=== PATIENT | female | born 1935 | race Caucasian/White ===

== ENCOUNTER 2016-11-24 16:11 | Inpatient (IN) ==
[2016-11-24] MEDS ORDERED: DILTIAZEM 50 MG/10 ML VIAL IV STA (16:39)
--- NOTE | 2016-11-24 16:44 | Emergency Department Note ---
Arrival - Arrival Chief Complaint: Arrhythmia/Palpitations Stated Complaint: bp chloe than usual. heart racing ED Nursing Triage Note: C/O HEART PALPITATIONS WITH LIGHT HEADED WITH ONSET 3-4 DAYS. PT ALSO STATES HER BLOOD PRESSURE HAS BEEN UP LATELY Mode of Arrival: Wheelchair Limitations: No Limitations Source: Patient, Family Time Seen by Provider: 11/24/16 16:39 - History of Present Illness HPI Narrative: This 81-year-old white female presents for complaints of 3-4 day history of the sensation of an irregular heartbeat sometimes speeded up. The patient denies a history of atrial fibrillation or SVT although she does have a history of bypass surgery, CO, and congestive failure. She denies any nausea, vomiting, diaphoresis, chest pain, or shortness of breath with this episode over the last few days. Her major complaint was feeling lightheaded and the sensation of irregularity of her heartbeat causing anxiety. Currently she does not appear in any acute medical distress. Onset (ago): day(s) (Patient presents 3-4 days post onset of symptoms) Consistency: constant Allergies/Adverse Reactions: Allergies Allergy/AdvReac Type Severity Reaction Status Date / Time No Known Allergies Allergy Unverified 11/24/16 16:15 Review of System - Review of System 12 point system: reviewed and no additional remarkable complaints except as stated - Review of System Constitutional: Present: as per HPI Respiratory: Present: as per HPI Cardiovascular: Present: as per HPI Gastrointestinal: Present: as per HPI Medical,Surgical,& Family Hx - Medical History Cardio: History of: Hypertension, CO Endocrine: History of: Diabetes Mellitus (NIDDM) - Surgical History Cardiac Surgeries: Sugical HX of: Cardiac Surgery (CABG) - Family History Family History: Reports;: Family Diabetes - Social History Smoking Status: Never smoker Frequency of Alcohol Use: None Type of Drug Use: None Exam Physical Examination: GENERAL: Well developed, well nourished elderly white female in no acute distress. HEENT: Normocephalic. No trauma. Moist mucous membranes. EOMI. PERRLA. ENT NML NECK: Supple. No adenopathy. CARDIAC: Irregular. No murmurs. Heart rate 120 CHEST: Clear to auscultation. No respiratory distress. O2 sat 95% ABDOMEN: Soft. Nontender. Active bowel sounds. EXTREMITIES: No trauma. Normal ROM. No pedal edema. SKIN: No diaphoresis. No rash. NEURO: Alert. Neuro intact. No focal deficits. Vital Signs: Vital Signs Temperature 98.0 F 11/24/16 16:34 Pulse Rate 72 11/24/16 16:34 Respiratory Rate 18 11/24/16 16:34 Blood Pressure 191/101 11/24/16 16:34 O2 Sat by Pulse Oximetry 95 11/24/16 16:15 Course - Reevaluation(s) Reevaluation #1: Discussed with patient the need for hospitalization given new onset atrial fibrillation - Consultations Consultation #1: Discussed with Dr. January Sin who will admit for further evaluation and treatment Results - Labs CBC & BMP: 11/24/16 16:54 11/24/16 16:54 Labs: I have noted the normal CBC and elevated free T4 as well as negative cardiacs. - Impressions EKG atrial fibrillation at [address] changes. Poor R-wave progression anteriorly. No acute injury pattern noted. - Diagnostic Findings Procedure: Chest x-ray: image reviewed by me, report reviewed by me (Status post mediastinal anatomy with borderline cardiomegaly and mild congestive failure.) Disposition Clinical Impression: New onset atrial fibrillation, Mild congestive failure, Hyperthyroidism Case discussed with: patient, patient's family Disposition: Still a Patient Condition: Stable Time of Disposition: 17:56
[2016-11-24] MEDS ORDERED: DILTIAZEM 50 MG/10 ML VIAL IV ONE (16:59)
[2016-11-24 17:03] LABS: Basophils % 0.3 % (0.0-0.8); Eosinophils % 0.4 % (0.00-10.9); Hematocrit 36.6 VOL% (35.7-47.0); Hemoglobin 12.1 GM/DL (12.0-16.0); Immature Granulocytes % 0.3 %; Immature Granulocytes Absolute 0.02 #; Lymphocytes # 1.4 10*3/uL (1.4-4.0); Lymphocytes % 19.7 % (21.3-54.2); Mean Corpuscular HGB Conc 33.1 GM/DL (32-36); Mean Corpuscular Hemoglobin 30 PG (27-34); Mean Corpuscular Volume 89.9 FL (87-102); Mean Platelet Volume 12.2 FL (9.6-12.0); Monocytes # 0.5 10*3/uL (0.11-0.8); Monocytes % 6.4 % (1.7-12.7); Neutrophils # 5.1 10*3/uL (1.4-7.4); Neutrophils % 72.9 % (38.7-73.9); Platelet Count 146 T/CUMM (130-400); Red Blood Count 4.07 MC/CUMM (3.8-5.5); Red Cell Distribution Width 13.2 % (9.3-17.3)
[2016-11-24 17:15] LABS: PT Patient Result 10.6 SECS; Partial Thromboplastin Time 25.7 SECS (0-40)
[2016-11-24 17:26] LABS: Free T4 (Free Thyroxine) 1.98 NG/DL (0.76-1.46); Troponin I Only < 0.015 NG/ML (0.00-0.045)
--- NOTE | 2016-11-24 17:27 | XRay Report ---
Portable chest Date: 11/24/2016 Clinical history: Shortness of breath Comparison: 07/11/2012 Technique: Portable AP sitting chest Findings: The heart is minimally enlarged with prior median sternotomy. Coronary artery stents are noted. Expiratory chest with prominent pulmonary vasculature. Progressive diffuse parenchymal findings especially at the lung bases. Stable mediastinum with degenerative changes and osteopenia. Impression: Status post median sternotomy with chronic scarring. Mild CHF. PROCEDURE INTERPRETED AT [facility] DEPARTMENT OF RADIOLOGY Final Report Signed by: Dr. Tamika Todd
[2016-11-24 17:38] LABS: Alanine Aminotransferase 28 U/L (13-56); Albumin 3.4 G/DL (3.4-5.0); Alkaline Phosphatase 107 U/L (45-117); Aspartate Amino Transferase 27 U/L (0-37); Bilirubin,Total < 0.39 MG/DL (0.2-1.0); Blood Urea Nitrogen 27 MG/DL (7-18); Calcium 8.5 MG/DL (8.5-10.1); Glucose 159 MG/DL (74-106); Potassium 3.7 MMOL/L (3.5-5.1); Sodium 143 MMOL/L (136-145); Thyroid Stimulating Hormone 0.055 uIU/ml (0.358-3.74); Total Protein 6.5 G/DL (6.4-8.3)
[2016-11-24] MEDS ORDERED: ONDANSETRON 4 MG/2 ML VIAL IV PRN (17:58)
--- NOTE | 2016-11-24 18:10 | EKG Report ---
Stationary ECG Study [facility] ER Test Date: 11/24/2016 4:23:53 PM Pat Name: SERGIO WONG Department: Room: Gender: F Investment Accounting Clerk: Ambika Moore : 1935 Requested by: Keyshawn Esquivel Order Number: [id number] Reading MD: CASEY THORPE Intervals [place] Rate: 93 P: 999 NE: 0 QRS: 66 QRSD: 90 T: 78 QT: 370 QTc: 421 Interpretive Statements ATRIAL FIBRILLATION SEPTAL INFARCT, PROBABLY OLD Electronically Signed On 11-26-16 10:41:46 CDT by CASEY THORPE [id number]
[2016-11-24] MEDS ORDERED: ROSUVASTATIN 10 MG TABLET PO SCH (21:00)
[2016-11-24] MEDS: CARVEDILOL 12.5 MG TABLET PO SCH (21:33)
[2016-11-24] MEDS: DILTIAZEM INJ 100 MG in SODIUM CHLORIDE 0.9% 100 ML IV SCH (21:37)
--- NOTE | 2016-11-24 23:15 | Internal Med History&Physical ---
Assessment and Plan (1) Hypertension Status: Chronic Current Visit: Yes Qualifiers: Hypertension type: essential hypertension Qualified Code(s): I10 - Essential (primary) hypertension (2) Atrial fibrillation Status: Acute Current Visit: Yes Qualifiers: Atrial fibrillation type: paroxysmal Qualified Code(s): I48.0 - Paroxysmal atrial fibrillation (3) Hypothyroid Problem details: drug induced hyperthyroid activity; excessive levothyroxine may have induced atrial fibrillation Status: Chronic Current Visit: Yes Qualifiers: Hypothyroidism type: acquired Qualified Code(s): E03.9 - Hypothyroidism, unspecified (4) Diabetes Status: Chronic Current Visit: Yes Qualifiers: Diabetes mellitus type: type 2 Diabetes mellitus complication status: without complication Diabetes mellitus superintendent terminal insulin use: with usp use Qualified Code(s): E11.9 - Type 2 diabetes mellitus without complications ; Z79.4 - intermodal customer service (current) use of insulin History of Present Illness Chief complaint: acute shortness of breath and palpitations History of present illness: Ms. Weaver is a 81 year old female with history of HTN, DM, paroxysmal atrial fib, OA, anxiety, who presented to ER with worsening shortness of breath and was found to be in atrial fibrillation with RVR. She denies chest pain. She has responded to beta ene and calcium channel ene. Will consult Dr. Wynn to see her, and wound care per Dr. Vee. She has a skin wound lower extremity from skin cancer removal. She is feeling better since she was in ER. Home Medications Medication Instructions Recorded Confirmed Type Acetaminophen 500 mg PO QPM 11/24/16 11/24/16 History Aspirin EC Tab 81 mg PO QPM 11/24/16 11/24/16 History Carvedilol 3.125 mg PO DAILY 11/24/16 11/24/16 History Cholecalciferol (Vitamin D3) 1,000 unit PO DAILY 11/24/16 11/24/16 History [Vitamin D3] Fluticasone 50 Mcg Nasal [place] 1 spray BOTH NARES DAILY PRN 11/24/16 11/24/16 History [Flonase Nasal [place]] Furosemide Tab [Lasix Tab] 40 mg PO QAM 11/24/16 11/24/16 History Insulin NPH/Regular 70/30 [HumuLIN 6 unit SUBCUT QPM 11/24/16 11/24/16 History 70/30] Insulin NPH/Regular 70/30 [HumuLIN 16 unit SUBCUT QAM 11/24/16 11/24/16 History 70/30] Levothyroxine Tab [Synthroid Tab] 200 mcg PO QAM 11/24/16 11/24/16 History Magnesium 250 mg PO QAM 11/24/16 11/24/16 History Meloxicam 7.5 mg PO QAM 11/24/16 11/24/16 History Multivitamin [Multivitamins] 1 each PO QAM 11/24/16 11/24/16 History [place]-3 Fatty Acids [Fish Oil] 500 mg PO BID 11/24/16 11/24/16 History Potassium Chloride Cap/Tab [K Dur] 20 meq PO QPM 11/24/16 11/24/16 History Rosuvastatin Calcium 2.5 mg PO MOFR 11/24/16 11/24/16 History Sertraline HCl 50 mg PO QPM 11/24/16 11/24/16 History amLODIPine [Norvasc] 5 mg PO QPM 11/24/16 11/24/16 History Allergies Allergy/AdvReac Type Severity Reaction Status Date / Time No Known Allergies Allergy Verified 11/24/16 19:31 Medical,Surgical,& Family Hx - Medical History Cardio: History of: CAD, Hypertension, CT Endocrine: History of: Diabetes Mellitus (NIDDM) - Surgical History Cardiac Surgeries: Sugical HX of: Cardiac Surgery (CABG) - Family History Family History: Reports;: Family Diabetes - Social History Smoking Status: Never smoker Frequency of Alcohol Use: None Type of Drug Use: None Marital Status: Lives With:: Children Functional capacity: independent ambulation - Cardiovascular Cardiovascular: Present: palpitations - Psychiatric Psychiatric: Present: anxiety Exam - Constitutional Vitals: Period Temp Pulse Resp BP Sys/[place] Pulse Ox Last 24 Hr 98.0 F 89-110 17-94 170-179/77-89 94-100 General appearance: no acute distress - Head Head exam: Present: normocephalic - Eye Eye exam: Present: EOMI - Respiratory Respiratory exam: Present: clear to auscultation bilaterally - Cardiovascular Cardiovascular exam: Present: irregular rhythm - GI/Abdominal GI/Abdominal exam: Present: soft. Absent: tenderness - Extremities Exam Extremities exam: Absent: edema - Neurological Exam Neurological exam: Present: alert, oriented X3, CN II-XII intact - Psychiatric Psychiatric exam: Present: normal mood - Skin Skin exam: Present: warm, dry Results - Labs CBC & BMP: 11/24/16 16:54 11/24/16 16:54 - EKG EKG shows: atrial fibrillation - Diagnostic Findings Procedure: Chest x-ray: report reviewed by me
[2016-11-24] MEDS ORDERED: FLUTICASONE 50 MCG NASAL SPRAY 16 GM BOTTLE BOTH NARES PRN (23:16)
[2016-11-24] MEDS ORDERED: DEXTROSE 50% 25 GM/50 ML VIAL IV PRN (23:54)
[2016-11-24] MEDS ORDERED: GLUCAGON 1 MG VIAL IM PRN (23:54)
[2016-11-25] MEDS: ROSUVASTATIN 10 MG TABLET PO SCH (01:07)
[2016-11-25] MEDS: LEVOTHYROXINE 150 MCG TABLET PO SCH (06:50)
--- NOTE | 2016-11-25 07:20 | EKG Report ---
Stationary ECG Study [facility] Test Date: 11/25/2016 7:19:56 AM Pat Name: SERGIO WONG Department: Room: 290 Gender: F Service Line Layer: [place] : 1935 Requested by: Keyshawn Esquivel Order Number: [id number] Reading MD: TANIKA WARREN Intervals [place] Rate: 64 P: 999 OK: 0 QRS: 108 QRSD: 87 T: 8 QT: 450 QTc: 459 Interpretive Statements ATRIAL FIBRILLATION MARKED RIGHT AXIS DEVIATION SEPTAL MYOCARDIAL INFARCTION, PROBABLY OLD Electronically Signed On 11-26-16 12:00:18 CDT by TANIKA WARREN [email or web address]
[2016-11-25] MEDS ORDERED: MELOXICAM 7.5 MG TABLET PO SCH (09:00)
[2016-11-25] MEDS ORDERED: SERTRALINE 50 MG TABLET PO SCH ×2 (09:00→19:00)
[2016-11-25] MEDS ORDERED: LEVOTHYROXINE 200 MCG TABLET PO SCH (09:00)
[2016-11-25] MEDS: MULTIVITAMIN (CENTRUM) TABLET PO SCH (09:46)
[2016-11-25] MEDS: POTASSIUM CHLORIDE 20 MEQ TABLET PO SCH (09:46)
[2016-11-25] MEDS: MAGNESIUM GLUCONATE 500 MG TABLET PO SCH (09:46)
[2016-11-25] MEDS: FUROSEMIDE 40 MG TABLET PO SCH (09:47)
[2016-11-25] MEDS: ASPIRIN 325 MG TABLET PO SCH (09:47)
[2016-11-25] MEDS: MELOXICAM 7.5 MG TABLET PO SCH (09:47)
[2016-11-25] MEDS: CARVEDILOL 12.5 MG TABLET PO SCH ×2 (09:49→22:31)
[2016-11-25] MEDS: INSULIN REGULAR 100 UNIT/ML SUBCUT SCH ×4 (09:50→22:31)
[2016-11-25] MEDS: INSULIN NPH/REGULAR 70/30 100 UNIT/ML SUBCUT SCH ×2 (09:52→18:15)
[2016-11-25 09:57] LABS: Calcium 8.3 MG/DL (8.5-10.1); Free T4 (Free Thyroxine) 2.01 NG/DL (0.76-1.46); Osmolality,Calculated 296.6 MOS/KG (273-304); Potassium 3.6 MMOL/L (3.5-5.1)
--- NOTE | 2016-11-25 10:55 | Internal Med Progress Note ---
Assessment and Plan (1) Hypertension Status: Chronic Current Visit: Yes Qualifiers: Hypertension type: essential hypertension Qualified Code(s): I10 - Essential (primary) hypertension (2) Atrial fibrillation Status: Acute Current Visit: Yes Qualifiers: Atrial fibrillation type: paroxysmal Qualified Code(s): I48.0 - Paroxysmal atrial fibrillation (3) Hypothyroid Problem details: drug induced hyperthyroid activity; excessive levothyroxine may have induced atrial fibrillation Status: Chronic Current Visit: Yes Qualifiers: Hypothyroidism type: acquired Qualified Code(s): E03.9 - Hypothyroidism, unspecified (4) Diabetes Status: Chronic Current Visit: Yes Qualifiers: Diabetes mellitus type: type 2 Diabetes mellitus complication status: without complication Diabetes mellitus superintendent container terminal insulin use: with detention use Qualified Code(s): E11.9 - Type 2 diabetes mellitus without complications ; Z79.4 - intermodal customer service (current) use of insulin Internal Medicine - PN: Subj Interval history: Ms. Weaver is a 81 year old female with history of HTN, DM, paroxysmal atrial fib, OA, anxiety, who presented to ER with worsening shortness of breath and was found to be in atrial fibrillation with RVR. She denies chest pain. She has responded to beta ene and calcium channel ene. Will consult Dr. Wynn to see her, and wound care per Dr. Vee. She has a skin wound lower extremity from skin cancer removal. She is feeling better since she was in ER. Today, Sunday, she is feeling much better and is rate controlled on Diltiazem. Still on Diltiazem infusion started last night. Her Synthroid has been too excessive causing hyperthyroid activity. Cutting down the dose. Explained to patient and son that this may be the cause of triggering atrial fibrillation. Apparently, abnormal thyroid activity in the past was the etiology behind her initial episode of atrial fibrillation, according to the patient's son, who is there at bedside. Also, adjusting antihypertensive meds. Exam (Progress Note) - Constitutional Vitals: Period Temp Pulse Resp BP Sys/[place] Pulse Ox Last 24 Hr 97.6 F-98.8 F 73-110 12-94 137-183/53-89 94-100 General appearance: no acute distress - Respiratory Respiratory exam: Present: clear to auscultation bilaterally - Cardiovascular Cardiovascular exam: Present: irregular rhythm - GI/Abdominal GI/Abdominal exam: Present: soft. Absent: tenderness - Extremities Exam Extremities exam: Absent: edema - Neurological Exam Neurological exam: Present: alert, oriented X3 - Psychiatric Psychiatric exam: Present: normal mood - Skin Skin exam: Present: warm, dry Results - Labs CBC & BMP: 11/24/16 16:54 11/25/16 08:55
[2016-11-25] MEDS ORDERED: cloNIDine 0.1 MG TABLET PO PRN (11:01)
[2016-11-25] MEDS: DILTIAZEM INJ 100 MG in SODIUM CHLORIDE 0.9% 100 ML IV SCH (11:59)
--- NOTE | 2016-11-25 12:38 | Cardiology Consult Note ---
<Negrita Davis E - Last Filed: 11/25/16 12:25> Assessment and Plan - Time spent with patient Time spent with patient: Greater than 30 minutes (1) CAD (coronary artery disease) Status: Chronic Assessment and plan: See plan of care listed below Current Visit: Yes (2) Dyslipidemia Status: Chronic Assessment and plan: See plan of care listed below Current Visit: Yes (3) Atrial fibrillation with RVR Status: Acute Assessment and plan: See plan of care listed below Current Visit: Yes (4) Hypertension Status: Chronic Assessment and plan: See plan of care listed below Current Visit: Yes Qualifiers: Hypertension type: essential hypertension Qualified Code(s): I10 - Essential (primary) hypertension (5) Hypothyroid Problem details: drug induced hyperthyroid activity; excessive levothyroxine may have induced atrial fibrillation Status: Chronic Assessment and plan: We will check a TSH. Current Visit: Yes Qualifiers: Hypothyroidism type: acquired Qualified Code(s): E03.9 - Hypothyroidism, unspecified (6) Diabetes Status: Chronic Assessment and plan: Continue plan of care Current Visit: Yes Qualifiers: Diabetes mellitus type: type 2 Diabetes mellitus complication status: without complication Diabetes mellitus detention insulin use: with detention use Qualified Code(s): E11.9 - Type 2 diabetes mellitus without complications ; Z79.4 - intermission coordinator (current) use of insulin History of Present Illness - Data of Consult Patient: known to practice within the last 3 years Consult date: 11/25/16 Requesting Physician: Jennifer Sin - Consult Narrative Reason for consult: Atrial fibrillation with rapid History of present illness: Ms. Weaver is a 81 year old female routinely followed by Dr. Wynn. She was last seen in cardiology clinic August 28, 2016. Risk factors include: Advanced age, known coronary artery disease (status post CABG), hypertension, hyperlipidemia, diabetes. She has a history of chronic atrial fibrillation and supraventricular tachycardia, history of bradycardia. She is hard of hearing. Patient presented to the emergency department at [facility] last evening after experiencing intermittent heart racing since Sunday. She was found to be in atrial fibrillation with rapid ventricular response, rate of 110. She has been given beta-blockers and Calcium channel blockers. Heart rate is much better controlled at 80 bpm. She is currently on IV Cardizem at 5 mg/h. Since Wednesday, her palpitations have been occurring intermittently, not being constant. She acknowledges that she was more short of breath when experiencing heart racing but otherwise denies having chest pain, heaviness, tightness or shortness of breath.. Her son acknowledges that she is usually very active and can perform her activities without complaints of angina. At her last visit with Dr. Wynn, her amiodarone was discontinued as her atrial fibrillation seems to be chronic. In the past she was on Coumadin but the son states that they had a long discussion with Dr. Wynn and they took her off of Coumadin because she seemed to be at a high risk for injury or bleeding. There is some history of bleeding problems per the son. The cannot further elaborate. ASSESSMENT/PLAN: 1. ATRIAL FIBRILLATION WITH RVR -currently on IV Cardizem. Will transition to oral medications to better control this and wean off the IV Cardizem. At this point, anticoagulation for stroke prevention may be considered as she seems to be in chronic atrial fibrillation at this point 2. KNOWN CAD S/P CABG -no complaints of angina. 3. HYPERTENSION -she was hypertensive upon arrival and remains uncontrolled this morning. We will adjust medications according currently 4. DYSLIPIDEMIA -continue lipid-lowering agent. FLP in the morning. 5. DIABETES -continue current plan of care 6. [place] -continue current plan of care CC: Jennifer Sin, - Home Medications and Allergies Home Medications: Home Medications Medication Instructions Recorded Confirmed Type Acetaminophen 500 mg PO QPM 11/24/16 11/24/16 History Aspirin EC Tab 81 mg PO QPM 11/24/16 11/24/16 History Carvedilol 3.125 mg PO DAILY 11/24/16 11/24/16 History Cholecalciferol (Vitamin D3) 1,000 unit PO DAILY 11/24/16 11/24/16 History [Vitamin D3] Fluticasone 50 Mcg Nasal [place] 1 spray BOTH NARES DAILY PRN 11/24/16 11/24/16 History [Flonase Nasal [place]] Furosemide Tab [Lasix Tab] 40 mg PO QAM 11/24/16 11/24/16 History Insulin NPH/Regular 70/30 [HumuLIN 6 unit SUBCUT QPM 11/24/16 11/24/16 History 70/30] Insulin NPH/Regular 70/30 [HumuLIN 16 unit SUBCUT QAM 11/24/16 11/24/16 History 70/30] Levothyroxine Tab [Synthroid Tab] 200 mcg PO QAM 11/24/16 11/24/16 History Magnesium 250 mg PO QAM 11/24/16 11/24/16 History Meloxicam 7.5 mg PO QAM 11/24/16 11/24/16 History Multivitamin [Multivitamins] 1 each PO QAM 11/24/16 11/24/16 History [place]-3 Fatty Acids [Fish Oil] 500 mg PO BID 11/24/16 11/24/16 History Potassium Chloride Cap/Tab [K Dur] 20 meq PO QPM 11/24/16 11/24/16 History Rosuvastatin Calcium 2.5 mg PO MOFR 11/24/16 11/24/16 History Sertraline HCl 50 mg PO QPM 11/24/16 11/24/16 History amLODIPine [Norvasc] 5 mg PO QPM 11/24/16 11/24/16 History Allergies/Adverse Reactions: Allergies Allergy/AdvReac Type Severity Reaction Status Date / Time No Known Allergies Allergy Verified 11/24/16 19:31 Review of systems: REVIEW OF SYSTEMS: - Constitutional Constitutional: Near syncope with lightheadedness with the heart racing absent: syncope, anorexia, night sweats - EENT Eyes: Absent: blurry vision, loss of vision, diplopia Ears: Hard of hearing denies ear pain or discharge - Cardiovascular Cardiovascular: Denies: chest pain with exertion, dyspnea on exertion. Palpitations. Occasional edema. Absent: chest pain with deep breath, claudication, - Respiratory Respiratory: Denies REYEZ, cough. Absent: wheezing, hemoptysis, change in phlegm color - Gastrointestinal Gastrointestinal: Present: constipation. Absent: aBDominal pain, hematemesis , hematochezia, melena, change in bowel habits, nausea - Genitourinary Genitourinary: Absent: difficulty urinating, dysuria, urinary hesitancy, flank pain - Musculoskeletal Musculoskeletal: Present: back pain Absent: joint swelling, muscle cramps, muscle weakness - Neurological Neurological: Present: Patient states she is normally with out poor gait. No frequent falls denies hemiparesis. - Psychiatric Psychiatric: Absent: anxiety, depression, difficulty concentrating - Endocrine Endocrine: Absent: cold intolerance, heat intolerance, polyuria, polyphagia, polydipsia - Hematologic/Lymphatic Hematologic/Lymphatic: Present: easy bruising. Absent: easy bleeding -Integumentary Integumentary: Absent: lesions, rashes, skin breakdown Medical,Surgical,& Family Hx - Medical History Cardio: History of: Cardiac Dysrhythmia, CAD, Hypertension, [place] Endocrine: History of: Diabetes Mellitus (NIDDM) - Surgical History Cardiac Surgeries: Sugical HX of: Cardiac Surgery (CABG) - Family History Family History: Reports;: Family Diabetes - Social History Smoking Status: Never smoker Frequency of Alcohol Use: None Type of Drug Use: None Lives With:: Spouse Functional capacity: independent ambulation Physical Examination Vital Signs Temp Pulse Resp BP Pulse Ox 98.0 F 109 H 18 164/133 95 11/24/16 16:15 11/24/16 16:15 11/24/16 16:15 11/24/16 16:15 11/24/16 16:15 General: [Appears well with no apparent distress.] [Pleasant and cooperative. ] [Appears comfortable.] HEENT: Hard of hearing. Wearing glasses. [PERRL, normocephalic, atraumatic. Mucous membranes moist. No jaundice noted. Conjunctiva moist and clear, sclerae anicteric] Neck: No JVD/HJR, no thyromegaly or lymphadenopathy noted. No carotid bruit appreciated Cardiac: [Irregularly irregular rhythm, fast rate] [soft, II/ holosystolic murmur heard best at the left fifth intercostal space] Lungs: [Clear to auscultation without accessory muscle use to assist the respiratory pattern.] Not requiring oxygen Abdomen: Soft, bowel sounds normoactive. Nontender and nondistended. No abdominal bruit or thrill noted. No masses noted. Musculoskeletal: No fluid collection. Decreased range of motion is noted. Extremities: No clubbing, cyanosis noted. [ No edema noted.] Upper extremity pulses 2+. Lower extremity pulses 2+. Capillary refill less than 3 seconds. Multiple varicosities noted bilateral lower extremities. Left lower extremity wrapped with Andrey bandage. Skin: No unusual lesions or rashes. No skin breakdown appreciated. Neuro: Awake, alert and oriented 3. Moves all extremities well without hemiparesis or paralysis. No essential tremor is appreciated. Result/EKG - Labs CBC & BMP: 11/24/16 16:54 11/25/16 08:55 Lab Results: I have reviewed the past 24 hour labs Labs: Laboratory Results - last 24 hr 11/24/16 11/25/16 11/25/16 18:52 08:21 08:55 Sodium 146 H Potassium 3.6 Chloride 107 Carbon Dioxide 29 Anion Gap 13.6 BUN 24 H Creatinine 0.90 GFR Calculation 65 BUN/Creatinine Ratio 26.00 H Glucose 145 H POC Glucose 129 H 151 H Calculated Osmolality 296.6 Calcium 8.3 L B-Natriuretic Peptide Free T4 2.01 H 11/25/16 08:55 Sodium Potassium Chloride Carbon Dioxide Anion Gap BUN Creatinine GFR Calculation BUN/Creatinine Ratio Glucose POC Glucose Calculated Osmolality Calcium B-Natriuretic Peptide 213 H Free T4 - Diagnostic Findings Procedure: Chest x-ray: report reviewed by me - EKG EKG results: interpreted by me EKG shows: atrial fibrillation <Kush Aliceaothy - Last Filed: 11/25/16 13:45> History of Present Illness - Consult Narrative History of present illness: Patient was personally interviewed and examined by myself and chart reviewed. I reviewed the case with Negrita Davis NP. I agree with her assessment in the only addition I have is in summation as below. Ms. Weaver is a 81 year old female who is followed by Dr. Desmond Wynn. She was admitted with palpitations. In reviewing her chart she has a history of atrial fibrillation and had been on echo is presenting this was stopped. She has not been on antiarrhythmics and apparently amiodarone was stopped at her last visit with Dr. Desmond Wynn in August 2016. She is not on anticoagulation apparently secondary to issues with this. Since her admission she has been on IV diltiazem. She is now having some slow rates with this and some positive but less than 3 seconds overall at this time. This may be secondary IV diltiazem which we will stop. The other issue is that her T4 is elevated on 2 checks this admission with her TSH being low. This certainly may indicate some iatrogenic hyperthyroid. Her dose has been reduced. We will monitor heart rates at this time. We mapped adjust oral medications to manage her heart rates. If she begins showing evidence though of tachybradycardia syndrome and she may end up at some point time with a pacemaker. In present we will monitor her rate over the next 24 hours and maybe home soon. CC: Jennifer Sin, DO Physical Examination Vital Signs Temp Pulse Resp BP Pulse Ox 98.0 F 109 H 18 164/133 95 11/24/16 16:15 11/24/16 16:15 11/24/16 16:15 11/24/16 16:15 11/24/16 16:15 Result/EKG - Labs CBC & BMP: 11/24/16 16:54 11/25/16 08:55 Labs: Laboratory Results - last 24 hr 11/24/16 11/25/16 11/25/16 18:52 08:21 08:52 Sodium Potassium Chloride Carbon Dioxide Anion Gap BUN Creatinine GFR Calculation BUN/Creatinine Ratio Glucose POC Glucose 129 H 151 H Calculated Osmolality Calcium Magnesium 2.1 B-Natriuretic Peptide Free T4 11/25/16 11/25/16 08:55 08:55 Sodium 146 H Potassium 3.6 Chloride 107 Carbon Dioxide 29 Anion Gap 13.6 BUN 24 H Creatinine 0.90 GFR Calculation 65 BUN/Creatinine Ratio 26.00 H Glucose 145 H POC Glucose Calculated Osmolality 296.6 Calcium 8.3 L Magnesium B-Natriuretic Peptide 213 H Free T4 2.01 H
[2016-11-25] MEDS: NEOMYCIN/POLYMYXIN/BACITRACIN OINT 0.9 GM PACK TOP SCH (18:00)
--- NOTE | 2016-11-25 18:01 | ECHO Report ---
Kenya Weaver Exam Date: 11/25/2016 11:11 Referring Physician: Technologist: Lisa Rojo RDCS Age: 81 Ht (in): Wt (lb): Gender: F Exam Location: [facility] Echo Indications: Atrial fibrillation, Palpitations, Shortness of breath, Essential (primary) hypertension, Hypothyroid, NIDDM, CAD with previous CABG BP: / HR: Rhythm: Sinus Technical Quality: Good IMPRESSIONS 1. Left ventricle is normal size systolic function ejection fraction 55%. There is mild left ventricular hypertrophy. 2. Right ventricular size is normal with normal systolic function. 3. Right and left atrium are moderately dilated. 4. Mild mitral valve regurgitation. 5. Mildly sclerotic aortic valve trace regurgitation. 6. Mild tricuspid regurgitation. 7. Mildly elevated right-sided pressures. MEASUREMENTS (Male / Female) Normal Values 2D ECHO LV Diastolic Diameter PLAX 4.1 cm 4.2 - 5.9 / 3.9 - 5.3 cm LV Systolic Diameter PLAX 2.9 cm LV Fractional Shortening PLAX 30.5 % IVS Diastolic Thickness 1.1 cm 0.6 - 1.0 / 0.6 - 0.9 cm LVPW Diastolic Thickness 1.1 cm 0.6 - 1.0 / 0.6 - 0.9 cm RV Internal Dim ED PLAX 3.2 cm Aortic Root Diameter 3.0 cm LA Systolic Diameter LX 5.0 cm 3.0 - 4.0 / 2.7 - 3.8 cm DOPPLER TR Peak Velocity 301.0 cm/s TR Peak Gradient 36.2 mmHg FINDINGS Left Ventricle Normal left ventricular cavity size. Mild left ventricular hypertrophy. Left ventricular ejection fraction is estimated at 55 %. Right Ventricle The right ventricle is normal in size and function. Right Atrium Moderately increased right atrial size. Left Atrium Moderately increased left atrial size. Mitral Valve Morphologically normal mitral valve. Mild mitral valve regurgitation. Aortic Valve Aortic valve sclerosis without stenosis. Trace aortic valve regurgitation. Tricuspid Valve Morphologically normal tricuspid valve. Mild tricuspid valve regurgitation. Tricuspid regurgitation velocities suggest a PAP of 45- 46 mmHg. Pulmonic Valve Morphologically normal pulmonic valve without significant stenosis. There is no pulmonic regurgitation. Pericardium Normal pericardium without effusion. Aorta Normal ascending aorta dimension. Kush Alicea MD (Electronically Signed) Final Date: 25 November 2016 18:00
[2016-11-25] MEDS ORDERED: amLODIPine 5 MG TABLET PO SCH (19:00)
[2016-11-25] MEDS ORDERED: ACETAMINOPHEN 500 MG TABLET PO SCH (19:00)
[2016-11-25] MEDS ORDERED: amLODIPine 10 MG TABLET PO SCH (19:00)
[2016-11-25] MEDS: SERTRALINE 50 MG TABLET PO SCH (21:58)
[2016-11-25] MEDS: ACETAMINOPHEN 500 MG TABLET PO SCH (21:59)
[2016-11-26 06:07] LABS: Basophils % 0.4 % (0.0-0.8); Eosinophils # 0.2 10*3/uL (0.0-0.87); Eosinophils % 3.2 % (0.00-10.9); Hematocrit 36.3 VOL% (35.7-47.0); Hemoglobin 11.9 GM/DL (12.0-16.0); Mean Corpuscular HGB Conc 32.8 GM/DL (32-36); Mean Corpuscular Hemoglobin 30 PG (27-34); Mean Corpuscular Volume 89.9 FL (87-102); Mean Platelet Volume 12.5 FL (9.6-12.0); Monocytes # 0.5 10*3/uL (0.11-0.8); Monocytes % 9.9 % (1.7-12.7); Neutrophils # 2.4 10*3/uL (1.4-7.4); Neutrophils % 47.5 % (38.7-73.9); Platelet Count 150 T/CUMM (130-400); Red Blood Count 4.04 MC/CUMM (3.8-5.5); Red Cell Distribution Width 13.2 % (9.3-17.3)
[2016-11-26 06:50] LABS: Calcium 8.4 MG/DL (8.5-10.1); Osmolality,Calculated 295.6 MOS/KG (273-304)
[2016-11-26] MEDS: LEVOTHYROXINE 150 MCG TABLET PO SCH (06:57)
--- NOTE | 2016-11-26 07:51 | EKG Report ---
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
--- NOTE | 2016-11-26 09:16 | Cardiology Progress Note ---
Assessment and Plan (1) Atrial fibrillation with RVR Status: Acute Assessment and plan: She has had chronic atrial fibrillation as per Dr. Wynn last note in the office. She's been treated as such and her antiarrhythmics had been stopped. She presented with increased ventricular response and palpitations and a feeling of fast heart rates. It was found that she will was hyperthyroid it was probably iatrogenic from increased levothyroxin. This is now been decreased. This certainly may be a cause of her increased ventricular response. Today is stable but she is also had an increase in her Coreg which may certainly help manage this. Clonidine also can cause bradycardia or at least decreased heart rates as well. She has had some bradycardia episode while on IV diltiazem that was stopped and just one episode of having to pauses less than 2 seconds each. No this indicates a pacemaker certainly at this time is certainly she has room for adjust her medications if needed. At the time of discharge she should have a follow-up made with Dr. Wynn for 2 weeks. Current Visit: Yes (2) Hypertension Status: Chronic Assessment and plan: This is mainly systolic. Her blood pressure medications be adjusted to manage this and I will leave this to Dr. Sin. Current Visit: Yes Qualifiers: Hypertension type: essential hypertension Qualified Code(s): I10 - Essential (primary) hypertension (3) Hypothyroid Problem details: drug induced hyperthyroid activity; excessive levothyroxine may have induced atrial fibrillation Status: Chronic Assessment and plan: She is on levothyroxine but has a stone lab work mitral generic hyperthyroid in her levothyroxine is been decreased. This certainly may have exacerbated her ventricular response. Current Visit: Yes Qualifiers: Hypothyroidism type: acquired Qualified Code(s): E03.9 - Hypothyroidism, unspecified (4) CAD (coronary artery disease) Status: Chronic Assessment and plan: This is clinically stable without symptomatology. Current Visit: Yes (5) Dyslipidemia Status: Chronic Assessment and plan: She is on statin drug for this and would continue. Current Visit: Yes Cardiology - PN: Subj Interval history: Patient is doing well without palpitations. Her heart rate i.e. ventricle response with atrial fibrillation is stable. Her systolic blood pressures are still up some. The patient yesterday did have short period of some bradycardia and a pause up to 2.8 seconds but this was while on IV diltiazem. She had a second episode of slowing for a short time of 2 pulses at less than 2 seconds each. She's had no demonstrable long pauses. She is off the Cardizem infusion. Should be noted that her carvedilol has increased from 3.125 mg to 12.5 mg twice a day and she' s had clonidine added to her regimen. Both of these drugs can cause bradycardia. Her heart rates though have otherwise been stable. If her heart is becoming issue or begins having significant pauses decreasing her carvedilol some back to 6.25 mg twice a day would be appropriate. Other medications can be used for blood pressures necessary. As we discussed yesterday her increased heart rate with her atrial fibrillation may be related to iatrogenic hyperthyroidism. Her levothyroxine is already been adjusted. She generally feels better. If she gets up and ambulates and does well this certainly she may be able to be discharged and. Exam (Progress Note) - Constitutional Vitals: Period Temp Pulse Resp BP Sys/[place] Pulse Ox Last 24 Hr 97.7 F-98.6 F 66-91 12-20 138-187/67-91 95-97 Exam: General appearance: normal weight, lying in bed no acute distress. HEENT exam: normal inspection, atraumatic Neck exam: normal inspection no JVD. No carotid bruit. Trachea is in midline Respiratory/lungs exam: clear to auscultation bilaterally good air movement. Cardiovascular exam: Irregular rhythm, 1 to 2/6 systolic murmur without gallop or rub. No precordial lift. Chest wall exam: nontender GI/Abdominal exam: normal bowel sounds, soft, nontender, no abdominal bruits or pulsatile masses. Extremeties/musculoskeletal: Right leg is without edema. Left leg is wrapped from previous and recent surgery. Neurological exam: alert, oriented X3, no focal deficits Psychiatric exam: normal affect, normal mood. Cognitive function is grossly normal. Skin exam: normal color, warm Result/EKG - Labs CBC & BMP: 11/26/16 05:30 11/26/16 05:29 Lab Results: I have reviewed the past 24 hour labs Labs: Laboratory Results - last 24 hr 11/25/16 11/25/16 11/25/16 08:21 08:52 08:55 WBC RBC Hgb Hct MCV MCH MCHC RDW Plt Count MPV Neut % (Auto) Lymph % (Auto) [place] % (Auto) Eos % (Auto) Baso % (Auto) Neut # (Auto) Lymph # (Auto) [place] # (Auto) Eos # (Auto) Baso # (Auto) Immature Gran % Nucleated RBC % Immature Gran # Nucleated RBCs # Sodium 146 H Potassium 3.6 Chloride 107 Carbon Dioxide 29 Anion Gap 13.6 BUN 24 H Creatinine 0.90 GFR Calculation 65 BUN/Creatinine Ratio 26.00 H Glucose 145 H POC Glucose 151 H Calculated Osmolality 296.6 Calcium 8.3 L Magnesium 2.1 B-Natriuretic Peptide Free T4 2.01 H 11/25/16 11/25/16 11/25/16 08:55 12:14 16:46 WBC RBC Hgb Hct MCV MCH MCHC RDW Plt Count MPV Neut % (Auto) Lymph % (Auto) [place] % (Auto) Eos % (Auto) Baso % (Auto) Neut # (Auto) Lymph # (Auto) [place] # (Auto) Eos # (Auto) Baso # (Auto) Immature Gran % Nucleated RBC % Immature Gran # Nucleated RBCs # Sodium Potassium Chloride Carbon Dioxide Anion Gap BUN Creatinine GFR Calculation BUN/Creatinine Ratio Glucose POC Glucose 193 H 141 H Calculated Osmolality Calcium Magnesium B-Natriuretic Peptide 213 H Free T4 11/25/16 11/26/16 11/26/16 21:03 05:29 05:30 WBC 5.0 RBC 4.04 Hgb 11.9 L Hct 36.3 MCV 89.9 MCH 30 MCHC 32.8 RDW 13.2 Plt Count 150 MPV 12.5 H Neut % (Auto) 47.5 Lymph % (Auto) 39.0 [place] % (Auto) 9.9 Eos % (Auto) 3.2 Baso % (Auto) 0.4 Neut # (Auto) 2.4 Lymph # (Auto) 2.0 [place] # (Auto) 0.5 Eos # (Auto) 0.2 Baso # (Auto) 0.0 Immature Gran % 0.0 Nucleated RBC % 0.0 Immature Gran # 0.00 Nucleated RBCs # 0.00 Sodium 146 H Potassium 4.0 Chloride 108 H Carbon Dioxide 26 Anion Gap 16.0 H BUN 27 H Creatinine 1.00 GFR Calculation 58 BUN/Creatinine Ratio 27.00 H Glucose 115 H POC Glucose 86 Calculated Osmolality 295.6 Calcium 8.4 L Magnesium 2.0 B-Natriuretic Peptide Free T4 11/26/16 07:12 WBC RBC Hgb Hct MCV MCH MCHC RDW Plt Count MPV Neut % (Auto) Lymph % (Auto) [place] % (Auto) Eos % (Auto) Baso % (Auto) Neut # (Auto) Lymph # (Auto) [place] # (Auto) Eos # (Auto) Baso # (Auto) Immature Gran % Nucleated RBC % Immature Gran # Nucleated RBCs # Sodium Potassium Chloride Carbon Dioxide Anion Gap BUN Creatinine GFR Calculation BUN/Creatinine Ratio Glucose POC Glucose 122 H Calculated Osmolality Calcium Magnesium B-Natriuretic Peptide Free T4 - Impressions Impressions: Clinically atrial fibrillation with better rate control at this time. As noted in HPI/interval history she did have some bradycardia but the first was while she was on the Cardizem infusion and the second was very short-lived and only 2 pauses less than 2 seconds each. This is not institute need for pacemaker. Medications can be adjusted for this. Specialty Discharge - Follow Up or Referrals Follow up with: Desmond Wynn MD [Physician] - 2 Weeks (At Discharge make the patient appointment with Dr. Desmond Wynn for 2 weeks with ECG.)
[2016-11-26] MEDS: POTASSIUM CHLORIDE 20 MEQ TABLET PO SCH (10:51)
[2016-11-26] MEDS: MULTIVITAMIN (CENTRUM) TABLET PO SCH (10:51)
[2016-11-26] MEDS: CALCIUM (CITRATE) 200 MG TABLET PO SCH (10:51)
[2016-11-26] MEDS: MELOXICAM 7.5 MG TABLET PO SCH (10:51)
[2016-11-26] MEDS: MAGNESIUM GLUCONATE 500 MG TABLET PO SCH (10:51)
[2016-11-26] MEDS: CARVEDILOL 12.5 MG TABLET PO SCH ×2 (10:52→20:53)
[2016-11-26] MEDS: INSULIN NPH/REGULAR 70/30 100 UNIT/ML SUBCUT SCH ×2 (10:52→19:03)
[2016-11-26] MEDS: ASPIRIN 325 MG TABLET PO SCH (10:52)
[2016-11-26] MEDS: FUROSEMIDE 40 MG TABLET PO SCH (10:52)
[2016-11-26] MEDS: INSULIN REGULAR 100 UNIT/ML SUBCUT SCH ×4 (10:57→20:53)
--- NOTE | 2016-11-26 14:23 | Internal Med Progress Note ---
Assessment and Plan (1) Hypertension Status: Chronic Current Visit: Yes Qualifiers: Hypertension type: essential hypertension Qualified Code(s): I10 - Essential (primary) hypertension (2) Atrial fibrillation Status: Acute Current Visit: Yes Qualifiers: Atrial fibrillation type: paroxysmal Qualified Code(s): I48.0 - Paroxysmal atrial fibrillation (3) Hypothyroid Problem details: drug induced hyperthyroid activity; excessive levothyroxine may have induced atrial fibrillation Status: Chronic Current Visit: Yes Qualifiers: Hypothyroidism type: acquired Qualified Code(s): E03.9 - Hypothyroidism, unspecified (4) Diabetes Status: Chronic Current Visit: Yes Qualifiers: Diabetes mellitus type: type 2 Diabetes mellitus complication status: without complication 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 Weaver is a 81 year old female with history of HTN, DM, paroxysmal atrial fib, OA, anxiety, who presented to ER with worsening shortness of breath and was found to be in atrial fibrillation with RVR. She denies chest pain. She has responded to beta ene and calcium channel ene. Will consult Dr. Wynn to see her, and wound care per Dr. Vee. She has a skin wound lower extremity from skin cancer removal. She is feeling better since she was in ER. Today, Sunday, she is feeling much better and is rate controlled on Diltiazem. Still on Diltiazem infusion started last night. Her Synthroid has been too excessive causing hyperthyroid activity. Cutting down the dose. Explained to patient and son that this may be the cause of triggering atrial fibrillation. Apparently, abnormal thyroid activity in the past was the etiology behind her initial episode of atrial fibrillation, according to the patient's son, who is there at bedside. Also, adjusting antihypertensive meds. Today, Sunday, she did not feel well enough to go home, and asked to stay another night. She is overall doing better. She is rate controlled, and blood pressure has improved. Exam (Progress Note) - Constitutional Vitals: Period Temp Pulse Resp BP Sys/[place]roe Pulse Ox Last 24 Hr 97.7 F-98.6 F 66-91 16-20 151-187/70-91 95-97 Exam: General appearance: no acute distress - Respiratory Respiratory exam: Present: clear to auscultation bilaterally - Cardiovascular Cardiovascular exam: Present: irregular rhythm - GI/Abdominal GI/Abdominal exam: Present: soft. Absent: tenderness - Extremities Exam Extremities exam: Absent: edema - Neurological Exam Neurological exam: Present: alert, oriented X3 - Psychiatric Psychiatric exam: Present: normal mood - Skin Skin exam: Present: warm, dry Vitals reviewed. Results - Labs CBC & BMP: 11/26/16 05:30 11/26/16 05:29 Specialty Discharge - Follow Up or Referrals Follow up with: Desmond Wynn MD [Physician] - 2 Weeks (At Discharge make the patient appointment with Dr. Desmond Wynn for 2 weeks with ECG.)
--- NOTE | 2016-11-26 14:23 | Discharge Summary ---
Hospital Course - Hospital Course Hospital Course: Ms. Weaver is a 81 year old female with history of HTN, DM, paroxysmal atrial fib, OA, anxiety, who presented to ER with worsening shortness of breath and was found to be in atrial fibrillation with RVR. She denies chest pain. She has responded to beta ene and calcium channel ene. Will consult Dr. Wynn to see her, and wound care per Dr. Vee. She has a skin wound lower extremity from skin cancer removal. She is feeling better since she was in ER. Her Synthroid has been too excessive causing hyperthyroid activity. Cutting down the dose. Explained to patient and son that this may be the cause of triggering atrial fibrillation. Apparently, abnormal thyroid activity in the past was the etiology behind her initial episode of atrial fibrillation, according to the patient's son, who is there at bedside. Also, adjusting antihypertensive meds. She is, overall, doing better and ready for discharge. She has been ambulating in her room. Diagnosis - Discharge Diagnosis (1) Hypertension Status: Chronic (2) Atrial fibrillation Status: Acute (3) Hypothyroid Status: Chronic (4) Diabetes Status: Chronic Specialty Discharge - Follow Up or Referrals Follow up with: Desmond Wynn MD [Physician] - 2 Weeks (At Discharge make the patient appointment with Dr. Desmond Wynn for 2 weeks with ECG.) Discharge Plan - Discharge Data Disposition: Disch To Home/Self Care Condition at Discharge: Stable Discharge Diet: low fat, low cholesterol - Discharge Medications New Aspirin Tab 325 mg PO DAILY tablet Calcium (Citrate) [Citracal] 400 mg PO DAILY tablet cloNIDine TAB [Catapres Tab] 0.1 mg PO TID PRN #20 tablet PRN Reason: Blood Pressure-Increased Carvedilol [Coreg] 12.5 mg PO BID #60 tablet Levothyroxine Tab [Synthroid Tab] 150 mcg PO DAILY@0700 #30 tablet NIFEdipine XL TAB [Procardia Xl] 60 mg PO DAILY #30 tablet cloNIDine TAB [Catapres Tab] 0.1 mg PO BID #60 tablet Continue Meloxicam 7.5 mg PO QAM Acetaminophen 500 mg PO QPM Cholecalciferol (Vitamin D3) [Vitamin D3] 1,000 unit PO DAILY Rosuvastatin Calcium 2.5 mg PO MOFR Sertraline HCl 50 mg PO QPM [place]-3 Fatty Acids [Fish Oil] 500 mg PO BID Insulin NPH/Regular 70/30 [HumuLIN 70/30] 6 unit SUBCUT QPM Insulin NPH/Regular 70/30 [HumuLIN 70/30] 16 unit SUBCUT QAM Potassium Chloride Cap/Tab [K Dur] 20 meq PO QPM Furosemide Tab [Lasix Tab] 40 mg PO QAM Multivitamin [Multivitamins] 1 each PO QAM Magnesium 250 mg PO QAM Fluticasone 50 Mcg Nasal Diamond [Flonase Nasal Diamond] 1 spray BOTH NARES DAILY PRN PRN Reason: Allergy Symptoms Discontinued Aspirin EC Tab 81 mg PO QPM amLODIPine [Norvasc] 5 mg PO QPM Levothyroxine Tab [Synthroid Tab] 200 mcg PO QAM Carvedilol 3.125 mg PO DAILY - Follow Up or Referral Follow Up: Desmond Wynn MD [Physician] - 2 Weeks (At Discharge make the patient appointment with Dr. Desmond Wynn for 2 weeks with ECG.) Jennifer Sin DO [Physician] - - Forms/Instructions Additional Discharge Instructions: Follow up with Dr. Aide Sin within 1-2 weeks in clinic. Follow up with Dr. Wynn in clinic in 2 weeks. Exam - Constitutional Vitals: Period Temp Pulse Resp BP Sys/[place] Pulse Ox Last 24 Hr 97.7 F-98.6 F 66-91 16-20 151-187/70-91 95-97 Exam: General appearance: no acute distress - Respiratory Respiratory exam: Present: clear to auscultation bilaterally - Cardiovascular Cardiovascular exam: Present: irregular rhythm - GI/Abdominal GI/Abdominal exam: Present: soft. Absent: tenderness - Extremities Exam Extremities exam: Absent: edema - Neurological Exam Neurological exam: Present: alert, oriented X3 - Psychiatric Psychiatric exam: Present: normal mood - Skin Skin exam: Present: warm, dry Vitals reviewed. Discharge Results Procedures and tests throughout hospitalization: Pending Orders 11/27/16 04:00 Basic Metabolic Panel IN AM 11/28/16 04:00 Basic Metabolic Panel IN AM Labs on day of discharge: Labs from last 24 hours 11/26/16 11/26/16 11/26/16 12:19 07:12 05:30 WBC 5.0 RBC 4.04 Hgb 11.9 L Hct 36.3 MCV 89.9 MCH 30 MCHC 32.8 RDW 13.2 Plt Count 150 MPV 12.5 H Neut % (Auto) 47.5 Lymph % (Auto) 39.0 [place] % (Auto) 9.9 Eos % (Auto) 3.2 Baso % (Auto) 0.4 Neut # (Auto) 2.4 Lymph # (Auto) 2.0 [place] # (Auto) 0.5 Eos # (Auto) 0.2 Baso # (Auto) 0.0 Immature Gran % 0.0 Nucleated RBC % 0.0 Immature Gran # 0.00 Nucleated RBCs # 0.00 Sodium Potassium Chloride Carbon Dioxide Anion Gap BUN Creatinine GFR Calculation BUN/Creatinine Ratio Glucose POC Glucose 148 H 122 H Calculated Osmolality Calcium Magnesium 11/26/16 11/25/16 11/25/16 05:29 21:03 16:46 WBC RBC Hgb Hct MCV MCH MCHC RDW Plt Count MPV Neut % (Auto) Lymph % (Auto) [place] % (Auto) Eos % (Auto) Baso % (Auto) Neut # (Auto) Lymph # (Auto) [place] # (Auto) Eos # (Auto) Baso # (Auto) Immature Gran % Nucleated RBC % Immature Gran # Nucleated RBCs # Sodium 146 H Potassium 4.0 Chloride 108 H Carbon Dioxide 26 Anion Gap 16.0 H BUN 27 H Creatinine 1.00 GFR Calculation 58 BUN/Creatinine Ratio 27.00 H Glucose 115 H POC Glucose 86 141 H Calculated Osmolality 295.6 Calcium 8.4 L Magnesium 2.0 11/25/16 12:14 WBC RBC Hgb Hct MCV MCH MCHC RDW Plt Count MPV Neut % (Auto) Lymph % (Auto) [place] % (Auto) Eos % (Auto) Baso % (Auto) Neut # (Auto) Lymph # (Auto) [place] # (Auto) Eos # (Auto) Baso # (Auto) Immature Gran % Nucleated RBC % Immature Gran # Nucleated RBCs # Sodium Potassium Chloride Carbon Dioxide Anion Gap BUN Creatinine GFR Calculation BUN/Creatinine Ratio Glucose POC Glucose 193 H Calculated Osmolality Calcium Magnesium DS: Provider Date of admission: 11/24/16 17:57 Primary care physician: . No PCP Attending physician on admission: Jennifer Sin DO Consults: 11/24/16 20:07 Consult to Physician [CONS] Routine Comment: Consulting Provider: Desmond Wynn Consulting Provider Notified: Yes When should Consulting Provider be notified: In am Consult to Specialist Group: Cardiology When should Consulting Provider be notified: In am 11/24/16 20:12 Consult to Wound Care - [place] [CONS] Routine Reason for Wound Care: Wound Care Management Consult Comment: Dr Vee Discharging clinician: Jennifer Sin DO Expected date of discharge: 11/27/16
[2016-11-26] MEDS ORDERED: cloNIDine 0.1 MG TABLET PO ONE (16:16)
[2016-11-26 16:21] LABS: Apearance,Urine Slightly Hazy (Clear); Bacteria,Urine Many /HPF (Few); Bilirubin,Urine Negative (Negative); Blood, Urine Small mg/dL (Negative); Glucose,Urine (UA) Negative (Negative); Ketones,Urine Negative (Negative); Mucus,Urine Occasional /LPF (Occasional); Nitrite,Urine Positive (Negative); Protein,Urine Negative; RBC,Urine 1 /HPF (0-4); Squamous Epithelial Cell,Urine Occasional /HPF (0-10); Urine Color Yellow (Yellow); Urine Specific Gravity 1.005 (1.001-1.035); Urine Urobilinogen < 2.0 EU/DL (0.2-1.0); WBC,Urine 12 /HPF (0-6)
[2016-11-26] MEDS: NEOMYCIN/POLYMYXIN/BACITRACIN OINT 0.9 GM PACK TOP SCH (18:53)
[2016-11-26] MEDS: ACETAMINOPHEN 500 MG TABLET PO SCH (19:04)
[2016-11-26] MEDS: SERTRALINE 50 MG TABLET PO SCH (19:04)
[2016-11-26] MEDS: cloNIDine 0.1 MG TABLET PO SCH (20:52)
[2016-11-27 07:34] LABS: Calcium 8.7 MG/DL (8.5-10.1); Osmolality,Calculated 294.8 MOS/KG (273-304); Potassium 4.5 MMOL/L (3.5-5.1)
[2016-11-27] MEDS: INSULIN REGULAR 100 UNIT/ML SUBCUT SCH ×4 (08:02→21:24)
[2016-11-27] MEDS: LEVOTHYROXINE 150 MCG TABLET PO SCH (09:45)
[2016-11-27] MEDS: CALCIUM (CITRATE) 200 MG TABLET PO SCH (09:45)
[2016-11-27] MEDS: MAGNESIUM GLUCONATE 500 MG TABLET PO SCH (09:46)
[2016-11-27] MEDS: INSULIN NPH/REGULAR 70/30 100 UNIT/ML SUBCUT SCH ×2 (09:46→18:56)
[2016-11-27] MEDS: MULTIVITAMIN (CENTRUM) TABLET PO SCH (09:47)
[2016-11-27] MEDS: FUROSEMIDE 40 MG TABLET PO SCH (09:47)
[2016-11-27] MEDS: ASPIRIN 325 MG TABLET PO SCH (09:47)
[2016-11-27] MEDS: POTASSIUM CHLORIDE 20 MEQ TABLET PO SCH (09:47)
[2016-11-27] MEDS: MELOXICAM 7.5 MG TABLET PO SCH (09:47)
[2016-11-27] MEDS: CARVEDILOL 12.5 MG TABLET PO SCH ×2 (09:47→21:17)
[2016-11-27] MEDS: NEOMYCIN/POLYMYXIN/BACITRACIN OINT 0.9 GM PACK TOP SCH (09:48)
[2016-11-27] MEDS: cloNIDine 0.1 MG TABLET PO SCH ×2 (09:48→21:17)
[2016-11-27] MEDS: cefTRIAXone 1,000 MG in SODIUM CHLORIDE 0.9% 100 ML IV SCH (11:25)
--- NOTE | 2016-11-27 12:41 | Physician Query Form ---
CLICK EDIT DOCUMENT TO SELECT QUERY ANSWER --> OK --> SIGN Shana Downey RN, CCDS Certified Clinical Director Service W) [phone] (f) [phone] [email or web address] PROVIDERS: Make your selection(s) from the choices in EACH section by typing an "x" and enter comments in the comment section. Please use your independent medical judgment in providing your response. This request does not imply that any particular answer is desired or expected. CLINICAL INDICATORS: (Providers should not edit this section) The medical record indicates that the patient was admitted with AF, Urine CS is showing >100,000 gram negative rods, Moderate Leukocytes, Urine Nitrate Positive and the patient was on Ceftriaxone. Based on the above, could you clarify the appropriate diagnosis, if significant , that supports the above abnormalities and additional evaluation, monitoring, and/or treatment rendered: (x ) Patient being monitored or treated for UTI ( ) Patient was not being monitored or treated for UTI ( ) Other, please specify: ( ) Clinically unable to determine COMMENTS: Use of terms such as suspected, likely, or probable (associated with a specific diagnosis that is being evaluated, monitored, or treated as if it exists) are acceptable and can be restated in the discharge summary if not ruled out. [facility]
--- NOTE | 2016-11-27 14:34 | Internal Med Progress Note ---
Assessment and Plan (1) Hypertension Status: Chronic Current Visit: Yes Qualifiers: Hypertension type: essential hypertension Qualified Code(s): I10 - Essential (primary) hypertension (2) Atrial fibrillation Status: Acute Current Visit: Yes Qualifiers: Atrial fibrillation type: paroxysmal Qualified Code(s): I48.0 - Paroxysmal atrial fibrillation (3) Hypothyroid Problem details: drug induced hyperthyroid activity; excessive levothyroxine may have induced atrial fibrillation Status: Chronic Current Visit: Yes Qualifiers: Hypothyroidism type: acquired Qualified Code(s): E03.9 - Hypothyroidism, unspecified (4) Diabetes Status: Chronic Current Visit: Yes Qualifiers: Diabetes mellitus type: type 2 Diabetes mellitus complication status: without complication 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 Weaver is a 81 year old female with history of HTN, DM, paroxysmal atrial fib, OA, anxiety, who presented to ER with worsening shortness of breath and was found to be in atrial fibrillation with RVR. She denies chest pain. She has responded to beta ene and calcium channel ene. Will consult Dr. Wynn to see her, and wound care per Dr. Vee. She has a skin wound lower extremity from skin cancer removal. She is feeling better since she was in ER. Today, Sunday, she is feeling much better and is rate controlled on Diltiazem. Still on Diltiazem infusion started last night. Her Synthroid has been too excessive causing hyperthyroid activity. Cutting down the dose. Explained to patient and son that this may be the cause of triggering atrial fibrillation. Apparently, abnormal thyroid activity in the past was the etiology behind her initial episode of atrial fibrillation, according to the patient's son, who is there at bedside. Also, adjusting antihypertensive meds. Today, Sunday, she did not feel well enough to go home, and asked to stay another night. She is overall doing better. She is rate controlled, and blood pressure has improved. Sunday, adding Rocephin for UTI. Exam (Progress Note) - Constitutional Vitals: Period Temp Pulse Resp BP Sys/[place] Pulse Ox Last 24 Hr 97.2 F-98.8 F 63-73 18-65 116-146/56-78 92-96 Exam: General appearance: no acute distress - Respiratory Respiratory exam: Present: clear to auscultation bilaterally - Cardiovascular Cardiovascular exam: Present: irregular rhythm - GI/Abdominal GI/Abdominal exam: Present: soft. Absent: tenderness - Extremities Exam Extremities exam: Absent: edema - Neurological Exam Neurological exam: Present: alert, oriented X3 - Psychiatric Psychiatric exam: Present: normal mood - Skin Skin exam: Present: warm, dry Vitals reviewed. Results - Labs CBC & BMP: 11/26/16 05:30 11/27/16 06:34 Specialty Discharge - Follow Up or Referrals Follow up with: Desmond Wynn MD [Physician] - 2 Weeks (At Discharge make the patient appointment with Dr. Desmond Wynn for 2 weeks with ECG.) Jennifer Sin DO [Physician] -
[2016-11-27] MEDS: ACETAMINOPHEN 500 MG TABLET PO SCH (18:28)
[2016-11-27] MEDS: SERTRALINE 50 MG TABLET PO SCH (18:29)
[2016-11-27] MEDS: ROSUVASTATIN 10 MG TABLET PO SCH (23:49)
[2016-11-28] MEDS: LEVOTHYROXINE 150 MCG TABLET PO SCH (06:09)
[2016-11-28 06:56] LABS: Calcium 8.6 MG/DL (8.5-10.1); Potassium 3.9 MMOL/L (3.5-5.1)
[2016-11-28] MEDS: INSULIN REGULAR 100 UNIT/ML SUBCUT SCH ×4 (07:52→21:40)
[2016-11-28] MEDS: NEOMYCIN/POLYMYXIN/BACITRACIN OINT 0.9 GM PACK TOP SCH (09:22)
[2016-11-28] MEDS: MAGNESIUM GLUCONATE 500 MG TABLET PO SCH (09:23)
[2016-11-28] MEDS: INSULIN NPH/REGULAR 70/30 100 UNIT/ML SUBCUT SCH ×2 (09:23→18:04)
[2016-11-28] MEDS: CARVEDILOL 12.5 MG TABLET PO SCH (09:24)
[2016-11-28] MEDS: MELOXICAM 7.5 MG TABLET PO SCH (09:24)
[2016-11-28] MEDS: FUROSEMIDE 40 MG TABLET PO SCH (09:24)
[2016-11-28] MEDS: CALCIUM (CITRATE) 200 MG TABLET PO SCH (09:25)
[2016-11-28] MEDS: ASPIRIN 325 MG TABLET PO SCH (09:25)
[2016-11-28] MEDS: MULTIVITAMIN (CENTRUM) TABLET PO SCH (09:25)
[2016-11-28] MEDS: POTASSIUM CHLORIDE 20 MEQ TABLET PO SCH (09:25)
[2016-11-28] MEDS: cloNIDine 0.1 MG TABLET PO SCH ×2 (09:26→21:39)
[2016-11-28] MEDS: CARVEDILOL 6.25 MG TABLET PO SCH ×2 (09:50→21:40)
[2016-11-28] MEDS: cefTRIAXone 1,000 MG in SODIUM CHLORIDE 0.9% 100 ML IV SCH (11:39)
--- NOTE | 2016-11-28 17:22 | Cardiology Progress Note ---
Nahid Hurd Rachel, RN, am scribing for, and in the presence of, Mitchell Pritchard MD 17:22. Assessment and Plan (1) Atrial fibrillation Status: Chronic Assessment and plan: This is chronic atrial fibrillation. Amiodarone was discontinued part Dr. Wynn at the last office visit. Rate is currently well controlled at 60. She has been on previous anticoagulation but this too was stopped for unknown reasons and was told by Dr. Wynn not to take any. The patient is unaware why this was stopped and records from [facility] do not reflect why this medication was discontinued. Will have patient follow up with Dr. Wynn in 1 week to further address anticoagulation. Current Visit: Yes Qualifiers: Atrial fibrillation type: paroxysmal Qualified Code(s): I48.0 - Paroxysmal atrial fibrillation (2) UTI (urinary tract infection) Status: Acute Assessment and plan: Continue plan of care with Rocephin. Current Visit: Yes Qualifiers: Urinary tract infection type: site unspecified Hematuria presence: without hematuria Qualified Code(s): N39.0 - Urinary tract infection, site not specified (3) CAD (coronary artery disease) Status: Chronic Assessment and plan: S/P CABG -no complaints of angina. Current Visit: Yes (4) Diabetes Status: Chronic Assessment and plan: Continue current plan of care. 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 Current Visit: Yes (6) Hypertension Status: Chronic Current Visit: Yes Qualifiers: Hypertension type: essential hypertension Qualified Code(s): I10 - Essential (primary) hypertension (7) Hypothyroid Problem details: drug induced hyperthyroid activity; excessive levothyroxine may have induced atrial fibrillation Status: Chronic Assessment and plan: Continue current plan of care. Current Visit: Yes Qualifiers: Hypothyroidism type: acquired Qualified Code(s): E03.9 - Hypothyroidism, unspecified Cardiology - PN: Subj Interval history: She was seen on telemetry. She did well overnight and is without any new complaints this morning. She was planned for discharge yesterday. However, she developed UTI, started on Rocephin. She tells me that Dr. Sin told her that she could go home this afternoon if everything looked okay. Patient reports that she feels much better this morning and is without all complaints. She denies chest pain, shortness of breath and palpitations/heart racing. Telemetry has been reviewed and no further episodes of bradycardia noted. It was found that she will was hyperthyroid it was probably iatrogenic from increased levothyroxin. This is now been decreased. She remains in atrial fibrillation with a controlled ventricular response, heart rate in the 60s. She has been on previous anticoagulation but this too was stopped for unknown reasons and was told by Dr. Wynn not to take any. The patient is unaware why this was stopped and records from [facility] do not reflect why this medication was discontinued. Rate is currently well controlled and will have patient follow up with Dr. Wynn in 1 week after discharge to further address anticoagulation for stroke prevention. At the time of discharge she should have a follow-up made with Dr. Wynn in 1 week to readdress anticoagulation. Active Medications Acetaminophen (Tylenol Tab) 500 mg PO QPM [facility] Last Admin: 11/27/16 18:28 Dose: 500 mg Aspirin () 325 mg PO DAILY [facility] Last Admin: 11/28/16 09:25 Dose: 325 mg Calcium Citrate (Citracal) 400 mg PO DAILY [facility] Last Admin: 11/28/16 09:25 Dose: 400 mg Carvedilol (Coreg) 6.25 mg PO BID [facility] Last Admin: 11/28/16 09:50 Dose: Not Given Clonidine HCl (Catapres Tab) 0.1 mg PO TID PRN PRN Reason: Blood Pressure-Increased Clonidine HCl (Catapres Tab) 0.1 mg PO BID [facility] Last Admin: 11/28/16 09:26 Dose: Not Given Dextrose/Water (D50) 25 gm IV PRN PRN PRN Reason: Hypoglycemia with IV access Fluticasone Propionate (Flonase) 1 spray BOTH NARES DAILY PRN PRN Reason: Allergy Symptoms Furosemide (Lasix Tab) 40 mg PO DAILY [facility] Last Admin: 11/28/16 09:24 Dose: 40 mg Glucagon () 1 mg IM PRN PRN PRN Reason: Hypoglycemia w/o IV access Ceftriaxone Sodium 1,000 mg/ (Sodium Chloride) 100 mls @ 200 mls/hr IV Q24H [facility] Last Admin: 11/28/16 11:39 Dose: 200 mls/hr Insulin Human Regular (Humulin R) 0 unit SUBCUT ACHS [facility] PRN Reason: Protocol Last Admin: 11/28/16 07:52 Dose: Not Given Insulin Isophane/Insulin Regular (Humulin 70/30) 16 unit SUBCUT QAM [facility] Last Admin: 11/28/16 09:23 Dose: 16 unit Insulin Isophane/Insulin Regular (Humulin 70/30) 6 unit SUBCUT QPM [facility] Last Admin: 11/27/16 18:56 Dose: Not Given Iron/Multivitamins/Folic Acid (Centrum Tab) [facility] [place] Last Admin: 11/28/16 09:25 Dose: 1 tablet Levothyroxine Sodium (Synthroid Tab) 150 mcg PO DAILY@0700 [facility] Last Admin: 11/28/16 06:09 Dose: 150 mcg Magnesium Gluconate () 250 mg PO QAM [facility] Last Admin: 11/28/16 09:23 Dose: 250 mg Meloxicam (Mobic) 7.5 [facility] [place] Last Admin: 11/28/16 09:24 Dose: 7.5 mg Neomycin/Polymyxin/Bacitracin (Neosporin Oint) 1 applic TOP DAILY [facility] Last Admin: 11/28/16 09:22 Dose: 1 applic Nifedipine (Procardia Xl) 60 mg PO DAILY [facility] Last Admin: 11/28/16 09:24 Dose: 60 mg Ondansetron HCl (Zofran Inj) 4 mg IV Q4H PRN PRN Reason: Nausea/Vomiting Potassium Chloride (K Dur) 20 meq PO DAILY [facility] Last Admin: 11/28/16 09:25 Dose: 20 meq Rosuvastatin Calcium (Crestor) 2.5 mg PO MOFR [facility] Last Admin: 11/27/16 23:49 Dose: 2.5 mg Sertraline HCl (Zoloft) 50 mg PO QPM [facility] Last Admin: 11/27/16 18:29 Dose: 50 mg Exam (Progress Note) - Constitutional Vitals: Period Temp Pulse Resp BP Sys/[place] Pulse Ox Last 24 Hr 98 F-98.7 F 53-85 18-20 119-133/56-66 94-95 General appearance: normal weight, no acute distress - Head Head exam: Present: normal inspection, normocephalic, atraumatic - Neck Neck exam: Present: normal inspection. Absent: lymphadenopathy, tenderness, thyromegaly - Respiratory Respiratory exam: Present: clear to auscultation bilaterally. Absent: accessory muscle use, chest wall tenderness, rales, rhonchi, stridor, wheezes - Cardiovascular Cardiovascular exam: Present: irregular rhythm. Absent: bradycardia, gallop, rubs, tachycardia - GI/Abdominal GI/Abdominal exam: Present: normal bowel sounds, soft. Absent: distended, firm , mass, tenderness - Extremities Exam Extremities exam: Present: normal inspection, normal capillary refill, other ( Normal lower extremity pulses). Absent: calf tenderness, edema - Psychiatric Psychiatric exam: Present: normal affect, normal mood. Absent: agitated, anxious, depressed - Skin Skin exam: Present: normal color, warm, dry Result/EKG - Labs CBC & BMP: 11/26/16 05:30 11/28/16 05:47 Lab Results: I have reviewed the past 24 hour labs Labs: Laboratory Results - last 24 hr 11/27/16 11/27/16 11/27/16 11:53 16:56 21:16 Sodium Potassium Chloride Carbon Dioxide Anion Gap BUN Creatinine GFR Calculation BUN/Creatinine Ratio Glucose POC Glucose 145 H 191 H 140 H Calculated Osmolality Calcium 11/28/16 11/28/16 05:47 07:38 Sodium 143 Potassium 3.9 Chloride 104 Carbon Dioxide 29 Anion Gap 13.9 BUN 36 H Creatinine 1.20 H GFR Calculation 46 BUN/Creatinine Ratio 30.00 H Glucose 134 H POC Glucose 124 H Calculated Osmolality 294.0 Calcium 8.6 Specialty Discharge - Follow Up or Referrals Follow up with: Jennifer Sin DO [Physician] - Desmond Wynn MD [Physician] - 1 Week (At Discharge make the patient appointment with Dr. Desmond Wynn in 1 week to further anticoagulation EKG) I, Mitchell Pritchard MD, personally performed the services described in this documentation, ascribed by Jessica Whitfield RN in my presence, and it is both accurate and complete 722 .
[2016-11-28] MEDS: SERTRALINE 50 MG TABLET PO SCH (18:05)
[2016-11-28] MEDS: ACETAMINOPHEN 500 MG TABLET PO SCH ×2 (18:06→21:39)
--- NOTE | 2016-11-28 18:54 | Discharge Summary ---
Hospital Course - Hospital Course Hospital Course: Ms. Weaver is a 81 year old female with history of HTN, DM, paroxysmal atrial fib, OA, anxiety, who presented to ER with worsening shortness of breath and was found to be in atrial fibrillation with RVR. She denies chest pain. She has responded to beta ene and calcium channel ene. Will consult Dr. Wynn to see her, and wound care per Dr. Vee. She has a skin wound lower extremity from skin cancer removal. She is feeling better since she was in ER. Her Synthroid has been too excessive causing hyperthyroid activity. Cutting down the dose. Explained to patient and son that this may be the cause of triggering atrial fibrillation. Apparently, abnormal thyroid activity in the past was the etiology behind her initial episode of atrial fibrillation, according to the patient's son, who is there at bedside. Antihypertensive meds have been adjusted. She has UTI and responded favorably to antibiotic. She will be discharged to home on PO antibiotic for a few days. Diagnosis - Discharge Diagnosis (1) Hypertension Status: Chronic (2) Atrial fibrillation Status: Chronic (3) Hypothyroid Status: Chronic (4) Diabetes Status: Chronic (5) UTI (urinary tract infection) Status: Acute Specialty Discharge - Follow Up or Referrals Follow up with: Desmond Wynn MD [Physician] - 12/11/16 2:50 pm (At Discharge make the patient appointment with Dr. Desmond Wynn in 1 week to further anticoagulation EKG) Jennifer Sin DO [Physician] - 12/20/16 12:15 pm () Discharge Plan - Discharge Data Disposition: Disch To Home/Self Care Condition at Discharge: Stable Discharge Diet: low fat, low cholesterol Activity: resume usual activities as tolerated, increase activity as tolerated - Discharge Medications New Aspirin Tab 325 mg PO DAILY tablet Calcium (Citrate) [Citracal] 400 mg PO DAILY tablet cloNIDine TAB [Catapres Tab] 0.1 mg PO TID PRN #20 tablet PRN Reason: Blood Pressure-Increased Levothyroxine Tab [Synthroid Tab] 150 mcg PO DAILY@0700 #30 tablet NIFEdipine XL TAB [Procardia Xl] 60 mg PO DAILY #30 tablet cloNIDine TAB [Catapres Tab] 0.1 mg PO BID #60 tablet Carvedilol [Coreg] 6.25 mg PO BID #60 tablet Cefuroxime Tab [Ceftin] 250 mg PO BID #10 tablet Continue Meloxicam 7.5 mg PO QAM Acetaminophen 500 mg PO QPM Cholecalciferol (Vitamin D3) [Vitamin D3] 1,000 unit PO DAILY Rosuvastatin Calcium 2.5 mg PO MOFR Sertraline HCl 50 mg PO QPM [place]-3 Fatty Acids [Fish Oil] 500 mg PO BID Insulin NPH/Regular 70/30 [HumuLIN 70/30] 6 unit SUBCUT QPM Insulin NPH/Regular 70/30 [HumuLIN 70/30] 16 unit SUBCUT QAM Potassium Chloride Cap/Tab [K Dur] 20 meq PO QPM Furosemide Tab [Lasix Tab] 40 mg PO QAM Multivitamin [Multivitamins] 1 each PO QAM Magnesium 250 mg PO QAM Fluticasone 50 Mcg Nasal Raymond [Flonase Nasal Raymond] 1 spray BOTH NARES DAILY PRN PRN Reason: Allergy Symptoms Discontinued Aspirin EC Tab 81 mg PO QPM amLODIPine [Norvasc] 5 mg PO QPM Levothyroxine Tab [Synthroid Tab] 200 mcg PO QAM Carvedilol 3.125 mg PO DAILY - Follow Up or Referral Follow Up: Desmond Wynn MD [Physician] - 12/11/16 2:50 pm (At Discharge make the patient appointment with Dr. Desmond Wynn in 1 week to further anticoagulation EKG) Jennifer Sin DO [Physician] - 12/20/16 12:15 pm () - Forms/Instructions Instructions: Atrial Fibrillation (DC), Urinary Tract Infection in Women (DC) Additional Discharge Instructions: Follow up with Dr. Aide Sin within 1-2 weeks in clinic. Follow up with Dr. Wynn per appointment set. Exam - Constitutional Vitals: Period Temp Pulse Resp BP Sys/[place] Pulse Ox Last 24 Hr 97.4 F-98.7 F 53-111 18-20 119-150/56-74 94-99 Exam: General appearance: no acute distress - Respiratory Respiratory exam: Present: clear to auscultation bilaterally - Cardiovascular Cardiovascular exam: Present: irregular rhythm - GI/Abdominal GI/Abdominal exam: Present: soft. Absent: tenderness - Extremities Exam Extremities exam: Absent: edema - Neurological Exam Neurological exam: Present: alert, oriented X3 - Psychiatric Psychiatric exam: Present: normal mood - Skin Skin exam: Present: warm, dry Vitals reviewed. Discharge Results Labs on day of discharge: Labs from last 24 hours 03/14/17 03/14/17 03/14/17 16:27 12:11 07:38 Sodium Potassium Chloride Carbon Dioxide Anion Gap BUN Creatinine GFR Calculation BUN/Creatinine Ratio Glucose POC Glucose 68 L 87 124 H Calculated Osmolality Calcium 11/28/16 11/27/16 05:47 21:16 Sodium 143 Potassium 3.9 Chloride 104 Carbon Dioxide 29 Anion Gap 13.9 BUN 36 H Creatinine 1.20 H GFR Calculation 46 BUN/Creatinine Ratio 30.00 H Glucose 134 H POC Glucose 140 H Calculated Osmolality 294.0 Calcium 8.6 DS: Provider Date of admission: 11/24/16 17:57 Primary care physician: . No PCP Attending physician on admission: Jennifer Sin DO Consults: 11/24/16 20:07 Consult to Physician [CONS] Routine Comment: Consulting Provider: Desmond Wynn Consulting Provider Notified: Yes When should Consulting Provider be notified: In am Consult to Specialist Group: Cardiology When should Consulting Provider be notified: In am 11/24/16 20:12 Consult to Wound Care - [place] [CONS] Routine Reason for Wound Care: Wound Care Management Consult Comment: Dr Vee 11/26/16 16:11 Consult to Physical Therapy [CONS] Routine Reason for Physical Therapy: Evaluate and Treat 11/27/16 10:29 Consult to Case Mgmt/Social Srvs [CONS] Routine Reason for Case Mgmt/Social Srvs: Home Health Consult Comment: will need home health for wound care on d/c, [facility]ferrably [facility]. Discharging clinician: Jennifer Sin DO Expected date of discharge: 11/29/16
--- NOTE | 2016-11-28 18:54 | Internal Med Progress Note ---
Assessment and Plan (1) Hypertension Status: Chronic Current Visit: Yes Qualifiers: Hypertension type: essential hypertension Qualified Code(s): I10 - Essential (primary) hypertension (2) Atrial fibrillation Status: Chronic Current Visit: Yes Qualifiers: Atrial fibrillation type: paroxysmal Qualified Code(s): I48.0 - Paroxysmal atrial fibrillation (3) Hypothyroid Problem details: drug induced hyperthyroid activity; excessive levothyroxine may have induced atrial fibrillation Status: Chronic Current Visit: Yes Qualifiers: Hypothyroidism type: acquired Qualified Code(s): E03.9 - Hypothyroidism, unspecified (4) Diabetes Status: Chronic Current Visit: Yes Qualifiers: Diabetes mellitus type: type 2 Diabetes mellitus complication status: without complication Diabetes mellitus senior care insulin use: with senior care use Qualified Code(s): E11.9 - Type 2 diabetes mellitus without complications ; 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 Weaver is a 81 year old female with history of HTN, DM, paroxysmal atrial fib, OA, anxiety, who presented to ER with worsening shortness of breath and was found to be in atrial fibrillation with RVR. She denies chest pain. She has responded to beta ene and calcium channel ene. Will consult Dr. Wynn to see her, and wound care per Dr. Vee. She has a skin wound lower extremity from skin cancer removal. She is feeling better since she was in ER. Today, Sunday, she is feeling much better and is rate controlled on Diltiazem. Still on Diltiazem infusion started last night. Her Synthroid has been too excessive causing hyperthyroid activity. Cutting down the dose. Explained to patient and son that this may be the cause of triggering atrial fibrillation. Apparently, abnormal thyroid activity in the past was the etiology behind her initial episode of atrial fibrillation, according to the patient's son, who is there at bedside. Also, adjusting antihypertensive meds. Today, Sunday, she did not feel well enough to go home, and asked to stay another night. She is overall doing better. She is rate controlled, and blood pressure has improved. Sunday, adding Rocephin for UTI. Sunday, she is feeling better and will be discharged in the morning. Exam (Progress Note) - Constitutional Vitals: Period Temp Pulse Resp BP Sys/[place] Pulse Ox Last 24 Hr 97.4 F-98.7 F 53-111 18-20 119-150/56-74 94-99 Exam: General appearance: no acute distress - Respiratory Respiratory exam: Present: clear to auscultation bilaterally - Cardiovascular Cardiovascular exam: Present: irregular rhythm - GI/Abdominal GI/Abdominal exam: Present: soft. Absent: tenderness - Extremities Exam Extremities exam: Absent: edema - Neurological Exam Neurological exam: Present: alert, oriented X3 - Psychiatric Psychiatric exam: Present: normal mood - Skin Skin exam: Present: warm, dry Vitals reviewed. Results - Labs CBC & BMP: 11/26/16 05:30 11/28/16 05:47 Specialty Discharge - Follow Up or Referrals Follow up with: Desmond Wynn MD [Physician] - 1 Week (At Discharge make the patient appointment with Dr. Desmond Wynn in 1 week to further anticoagulation EKG) Jennifer Sin DO [Physician] -
[2016-11-29] MEDS: LEVOTHYROXINE 150 MCG TABLET PO SCH (06:38)
[2016-11-29 07:47] VITALS: BP 153/65
[2016-11-29] MEDS: INSULIN REGULAR 100 UNIT/ML SUBCUT SCH (08:50)
[2016-11-29] MEDS: cefTRIAXone 1,000 MG in SODIUM CHLORIDE 0.9% 100 ML IV SCH (09:54)
[2016-11-29] MEDS: POTASSIUM CHLORIDE 20 MEQ TABLET PO SCH (09:55)
[2016-11-29] MEDS: MULTIVITAMIN (CENTRUM) TABLET PO SCH (09:55)
[2016-11-29] MEDS: FUROSEMIDE 40 MG TABLET PO SCH (09:55)
[2016-11-29] MEDS: ASPIRIN 325 MG TABLET PO SCH (09:55)
[2016-11-29] MEDS: CALCIUM (CITRATE) 200 MG TABLET PO SCH (09:55)
[2016-11-29] MEDS: MAGNESIUM GLUCONATE 500 MG TABLET PO SCH (09:55)
[2016-11-29] MEDS: cloNIDine 0.1 MG TABLET PO SCH (09:55)
[2016-11-29] MEDS: CARVEDILOL 6.25 MG TABLET PO SCH (09:55)
[2016-11-29] MEDS: MELOXICAM 7.5 MG TABLET PO SCH (09:55)
[2016-11-29] MEDS: INSULIN NPH/REGULAR 70/30 100 UNIT/ML SUBCUT SCH (09:56)
[2016-11-29] MEDS: NEOMYCIN/POLYMYXIN/BACITRACIN OINT 0.9 GM PACK TOP SCH (09:56)
== END 2016-11-29 10:57 | disposition home or self-care (01) | DRG 309 ==
LOC: N.ED 16:11 → N.EDINP 17:57 → N.TELEN 18:58
PROVIDERS: ADMIT Internal Medicine; ATTEND Internal Medicine

== ENCOUNTER 2017-09-30 17:20 | Inpatient (IN) ==
[2017-09-30] MEDS ORDERED: ASPIRIN 325 MG TABLET PO STA (17:49)
[2017-09-30] MEDS ORDERED: DILTIAZEM 50 MG/10 ML VIAL IV STA (17:51)
[2017-09-30] MEDS ORDERED: ONDANSETRON 4 MG/2 ML VIAL ONE (18:05)
[2017-09-30] MEDS ORDERED: DILTIAZEM 50 MG/10 ML VIAL IV ONE (18:25)
[2017-09-30] MEDS ORDERED: ASPIRIN 325 MG TABLET ONE (18:25)
[2017-09-30] MEDS ORDERED: ONDANSETRON 4 MG/2 ML VIAL IV STA (18:28)
[2017-09-30 18:48] LABS: Basophils % 0.5 % (0.0-0.8); Eosinophils # 0.1 10*3/uL (0.0-0.87); Eosinophils % 1.4 % (0.00-10.9); Hematocrit 40.8 VOL% (35.7-47.0); Hemoglobin 13.1 GM/DL (12.0-16.0); Immature Granulocytes % 0.3 %; Immature Granulocytes Absolute 0.02 #; Lymphocytes % 30.2 % (21.3-54.2); Mean Corpuscular HGB Conc 32.1 GM/DL (32-36); Mean Corpuscular Hemoglobin 30 PG (27-34); Mean Corpuscular Volume 93.2 FL (87-102); Mean Platelet Volume 12.1 FL (9.6-12.0); Monocytes # 0.6 10*3/uL (0.11-0.8); Monocytes % 9.7 % (1.7-12.7); Neutrophils # 3.8 10*3/uL (1.4-7.4); Neutrophils % 57.9 % (38.7-73.9); Platelet Count 157 T/CUMM (130-400); Red Blood Count 4.38 MC/CUMM (3.8-5.5); Red Cell Distribution Width 12.9 % (9.3-17.3); White Blood Count 6.5 T/CUMM (4-12)
[2017-09-30 18:49] LABS: Apearance,Urine Clear (Clear); Glucose,Urine (UA) Negative (Negative); Ketones,Urine Negative (Negative); Nitrite,Urine Negative (Negative); Protein,Urine 1+ MG/DL; Urine Color Straw (Yellow); Urine Specific Gravity 1.005 (1.001-1.035)
[2017-09-30 18:50] LABS: Bilirubin,Urine Negative (Negative); Blood, Urine Negative (Negative); Mucus,Urine Rare /LPF (Occasional); Urine Urobilinogen < 2.0 EU/DL (0.2-1.0)
[2017-09-30] MEDS ORDERED: cefTRIAXone 1,000 MG in SODIUM CHLORIDE 0.9% 100 ML IV STA (19:00)
[2017-09-30 19:02] LABS: PT Patient Result 10.7 SECS; Partial Thromboplastin Time 26.6 SECS (0-40)
[2017-09-30 19:08] LABS: Alanine Aminotransferase 33 U/L (13-56); Albumin 3.9 G/DL (3.4-5.0); Alkaline Phosphatase 128 U/L (45-117); Aspartate Amino Transferase 34 U/L (0-37); Blood Urea Nitrogen 40 MG/DL (7-18); Calcium 8.9 MG/DL (8.5-10.1); Glucose 117 MG/DL (74-106); Osmolality,Calculated 285.7 MOS/KG (273-304); Potassium 3.7 MMOL/L (3.5-5.1); Sodium 138 MMOL/L (136-145); Total Protein 7.5 G/DL (6.4-8.3); Troponin I Only 0.032 NG/ML (0.00-0.045)
[2017-09-30] MEDS ORDERED: SODIUM CHLORIDE 0.9% 100 ML IV ONE (19:10)
[2017-09-30] MEDS ORDERED: cefTRIAXone 1,000 MG VIAL ONE (19:10)
[2017-09-30] MEDS ORDERED: hydrALAZINE 20 MG/1 ML VIAL ONE (19:23)
[2017-09-30] MEDS ORDERED: hydrALAZINE 20 MG/1 ML VIAL IV STA (19:24)
[2017-09-30] MEDS ORDERED: MORPHINE 10 MG/1 ML VIAL IV PRN (23:59)
[2017-09-30] MEDS ORDERED: GLUCAGON 1 MG VIAL IM PRN (23:59)
[2017-09-30] MEDS ORDERED: ONDANSETRON 4 MG/2 ML VIAL IV PRN (23:59)
[2017-09-30] MEDS ORDERED: DEXTROSE 50% 25 GM/50 ML VIAL IV PRN (23:59)
[2017-09-30] MEDS ORDERED: ACETAMINOPHEN 325 MG TABLET PO PRN (23:59)
[2017-10-01 05:09] LABS: Basophils % 0.3 % (0.0-0.8); Eosinophils % 0.3 % (0.00-10.9); Hematocrit 36.4 VOL% (35.7-47.0); Hemoglobin 12.2 GM/DL (12.0-16.0); Immature Granulocytes % 0.3 %; Immature Granulocytes Absolute 0.02 #; Lymphocytes # 1.8 10*3/uL (1.4-4.0); Mean Corpuscular HGB Conc 33.5 GM/DL (32-36); Mean Corpuscular Hemoglobin 31 PG (27-34); Mean Corpuscular Volume 91.7 FL (87-102); Mean Platelet Volume 11.9 FL (9.6-12.0); Monocytes # 0.7 10*3/uL (0.11-0.8); Monocytes % 10.1 % (1.7-12.7); Platelet Count 145 T/CUMM (130-400); Red Blood Count 3.97 MC/CUMM (3.8-5.5); White Blood Count 6.5 T/CUMM (4-12)
[2017-10-01 05:41] LABS: Bilirubin,Total 0.4 MG/DL (0.2-1.0); Calcium 8.2 MG/DL (8.5-10.1); Magnesium 2.1 MG/DL (1.8-2.4); Osmolality,Calculated 290.4 MOS/KG (273-304); Potassium 3.6 MMOL/L (3.5-5.1); Risk Ratio 2.45; Total Protein 6.4 G/DL (6.4-8.3)
[2017-10-01] MEDS: DOCUSATE SODIUM 100 MG CAPSULE PO SCH ×3 (05:57→21:36)
[2017-10-01] MEDS: SODIUM CHLORIDE 0.9% 1,000 ML IV SCH ×2 (06:00→22:10)
[2017-10-01] MEDS: PANTOPRAZOLE 40 MG TABLET PO SCH (08:51)
[2017-10-01] MEDS ORDERED: FLUTICASONE 50 MCG NASAL SPRAY 16 GM BOTTLE BOTH NARES PRN (18:41)
[2017-10-01] MEDS ORDERED: DEXTROSE 50% 25 GM/50 ML VIAL IV PRN (18:47)
[2017-10-01] MEDS ORDERED: GLUCAGON 1 MG VIAL IM PRN (18:47)
[2017-10-01] MEDS ORDERED: SERTRALINE 50 MG TABLET PO SCH (19:00)
[2017-10-01] MEDS ORDERED: INSULIN NPH/REGULAR 70/30 100 UNIT/ML SUBCUT SCH (19:00)
[2017-10-01] MEDS ORDERED: ACETAMINOPHEN 500 MG TABLET PO SCH (19:00)
[2017-10-01] MEDS ORDERED: APIXABAN 2.5 MG TABLET PO SCH (21:00)
[2017-10-01] MEDS: APIXABAN 5 MG TABLET PO SCH (21:36)
[2017-10-01] MEDS: CARVEDILOL 6.25 MG TABLET PO SCH (21:36)
[2017-10-01] MEDS: INSULIN REGULAR 100 UNIT/ML SUBCUT SCH (21:38)
[2017-10-01] MEDS: POTASSIUM CHLORIDE 20 MEQ/15 ML UDCUP PO SCH (21:38)
[2017-10-01] MEDS: cefTRIAXone 500 MG in SYRINGE 1 EACH IV SCH (21:39)
[2017-10-01] MEDS: SODIUM CHLORIDE 0.45% 1,000 ML IV SCH (21:45)
[2017-10-02] MEDS: LEVOTHYROXINE 125 MCG TABLET PO SCH (06:51)
[2017-10-02] MEDS: INSULIN REGULAR 100 UNIT/ML SUBCUT SCH ×2 (08:40→17:16)
[2017-10-02] MEDS: APIXABAN 5 MG TABLET PO SCH ×2 (08:58→20:49)
[2017-10-02] MEDS: POTASSIUM CHLORIDE 20 MEQ/15 ML UDCUP PO SCH ×2 (08:58→20:48)
[2017-10-02] MEDS: PANTOPRAZOLE 40 MG TABLET PO SCH (08:58)
[2017-10-02] MEDS: ASPIRIN CHEW 81 MG TABLET PO SCH (08:58)
[2017-10-02] MEDS: CARVEDILOL 6.25 MG TABLET PO SCH (08:58)
[2017-10-02] MEDS: DOCUSATE SODIUM 100 MG CAPSULE PO SCH ×2 (08:58→20:49)
[2017-10-02] MEDS: INSULIN NPH/REGULAR 70/30 100 UNIT/ML SUBCUT SCH (08:58)
[2017-10-02] MEDS: FUROSEMIDE 40 MG TABLET PO SCH (08:58)
[2017-10-02] MEDS: SODIUM CHLORIDE 0.45% 1,000 ML IV SCH ×2 (11:05→21:22)
[2017-10-02] MEDS ORDERED: CARVEDILOL 6.25 MG TABLET PO ONE (12:52)
[2017-10-02] MEDS ORDERED: INSULIN NPH/REGULAR 70/30 100 UNIT/ML SUBCUT SCH (17:00)
[2017-10-02] MEDS ORDERED: DIGOXIN 0.5 MG/2 ML AMP IV ONE (18:20)
[2017-10-02] MEDS ORDERED: DIGOXIN 0.5 MG/2 ML AMP ONE (18:22)
[2017-10-02] MEDS ORDERED: MAGNESIUM SULF RIDER 4 GM in PREMIX 1 EACH IV PRN (18:34)
[2017-10-02] MEDS ORDERED: POTASSIUM CHLORIDE 20 MEQ TABLET PO PRN (18:34)
[2017-10-02] MEDS ORDERED: MAGNESIUM SULF RIDER 2 GM in PREMIX 1 EACH IV PRN (18:34)
[2017-10-02 19:14] LABS: Calcium 8.3 MG/DL (8.5-10.1); Magnesium 1.6 MG/DL (1.8-2.4); Potassium 3.7 MMOL/L (3.5-5.1)
[2017-10-02] MEDS: cefTRIAXone 500 MG in SYRINGE 1 EACH IV SCH (20:49)
[2017-10-02] MEDS: CARVEDILOL 12.5 MG TABLET PO SCH (20:49)
[2017-10-02] MEDS ORDERED: ACETAMINOPHEN 500 MG TABLET PO SCH (21:00)
[2017-10-02] MEDS ORDERED: SERTRALINE 50 MG TABLET PO SCH (21:00)
[2017-10-03 05:36] LABS: Basophils % 0.4 % (0.0-0.8); Eosinophils # 0.2 10*3/uL (0.0-0.87); Eosinophils % 4.5 % (0.00-10.9); Hematocrit 36.4 VOL% (35.7-47.0); Hemoglobin 12.2 GM/DL (12.0-16.0); Lymphocytes # 1.7 10*3/uL (1.4-4.0); Lymphocytes % 35.1 % (21.3-54.2); Mean Corpuscular HGB Conc 33.5 GM/DL (32-36); Mean Corpuscular Hemoglobin 31 PG (27-34); Mean Corpuscular Volume 92.6 FL (87-102); Mean Platelet Volume 12.1 FL (9.6-12.0); Monocytes # 0.5 10*3/uL (0.11-0.8); Monocytes % 10.7 % (1.7-12.7); Neutrophils # 2.4 10*3/uL (1.4-7.4); Neutrophils % 49.3 % (38.7-73.9); Platelet Count 126 T/CUMM (130-400); Red Blood Count 3.93 MC/CUMM (3.8-5.5); Red Cell Distribution Width 12.9 % (9.3-17.3); White Blood Count 4.9 T/CUMM (4-12)
[2017-10-03 06:02] LABS: Calcium 8.4 MG/DL (8.5-10.1); Magnesium 2.3 MG/DL (1.8-2.4); Osmolality,Calculated 287.4 MOS/KG (273-304)
[2017-10-03] MEDS: LEVOTHYROXINE 125 MCG TABLET PO SCH ×2 (06:14→09:36)
[2017-10-03] MEDS: INSULIN REGULAR 100 UNIT/ML SUBCUT SCH (09:30)
[2017-10-03] MEDS: POTASSIUM CHLORIDE 20 MEQ/15 ML UDCUP PO SCH (09:30)
[2017-10-03] MEDS: PANTOPRAZOLE 40 MG TABLET PO SCH (09:33)
[2017-10-03] MEDS: INSULIN NPH/REGULAR 70/30 100 UNIT/ML SUBCUT SCH (09:33)
[2017-10-03] MEDS: DOCUSATE SODIUM 100 MG CAPSULE PO SCH (09:33)
[2017-10-03] MEDS: ASPIRIN CHEW 81 MG TABLET PO SCH (09:33)
[2017-10-03] MEDS: FUROSEMIDE 40 MG TABLET PO SCH (09:33)
[2017-10-03] MEDS: CARVEDILOL 12.5 MG TABLET PO SCH (09:33)
[2017-10-03] MEDS: APIXABAN 5 MG TABLET PO SCH (09:49)
[2017-10-03 17:14] VITALS: BP 145/80
== END 2017-10-03 19:12 | disposition home or self-care (01) | DRG 69 ==
LOC: EDUNIT# → N.ED 17:20 → N.EDINP 20:21 → N.TELEN 21:37
PROVIDERS: ADMIT Internal Medicine; ATTEND Internal Medicine

== ENCOUNTER 2022-10-19 13:44 | Inpatient (IN) ==
[2022-10-19 15:49] LABS: Basophils % 0.2 % (0.0-0.8); Eosinophils # 0.1 10*3/uL (0.0-0.87); Eosinophils % 0.6 % (0.00-10.9); Hematocrit 42.7 VOL% (35.7-47.0); Hemoglobin 13.3 GM/DL (12.0-16.0); Immature Granulocytes % 0.5 %; Immature Granulocytes Absolute 0.04 #; Lymphocytes # 1.4 10*3/uL (1.4-4.0); Lymphocytes % 16.2 % (21.3-54.2); Mean Corpuscular HGB Conc 31.1 GM/DL (32-36); Mean Corpuscular Volume 95.3 FL (87-102); Mean Platelet Volume 11.8 FL (9.6-12.0); Monocytes # 0.7 10*3/uL (0.11-0.8); Monocytes % 7.7 % (1.7-12.7); Neutrophils % 74.8 % (38.7-73.9); Platelet Count 135 T/CUMM (130-400); Red Blood Count 4.48 MC/CUMM (3.8-5.5); Red Cell Distribution Width 14.4 % (9.3-17.3); White Blood Count 8.5 T/CUMM (4-12)
[2022-10-19 16:42] LABS: Albumin 2.8 G/DL (3.4-5.0); Bilirubin,Total 0.5 MG/DL (0.20-1.00); Calcium 8.9 MG/DL (8.5-10.1); Osmolality,Calculated 293.5 MOS/KG (273-304); Potassium 3.7 MMOL/L (3.5-5.1); Thyroid Stimulating Hormone 40.1 uIU/ml (0.358-3.74); Total Protein 6.5 G/DL (6.4-8.2)
[2022-10-19] MEDS ORDERED: FLUTICASONE 50 MCG NASAL SPRAY 16 GM BOTTLE BOTH NARES PRN (17:41)
[2022-10-19] MEDS ORDERED: ACETAMINOPHEN 500 MG TABLET PO PRN (17:41)
[2022-10-19] MEDS ORDERED: LORATADINE 10 MG TABLET PO PRN (17:41)
[2022-10-19] MEDS ORDERED: GLUCAGON 1 MG VIAL IM PRN (17:53)
[2022-10-19] MEDS ORDERED: ACETAMINOPHEN 325 MG TABLET PO PRN (17:53)
[2022-10-19] MEDS ORDERED: ONDANSETRON 4 MG/2 ML VIAL IV PRN (17:53)
[2022-10-19] MEDS ORDERED: DEXTROSE 10% 250 ML BAG IV PRN (17:53)
[2022-10-19] MEDS: SODIUM CHLORIDE 0.9% 1,000 ML IV SCH (18:59)
[2022-10-19] MEDS: INSULIN LISPRO 100 UNIT/ML SUBCUT SCH (22:13)
[2022-10-19] MEDS: MEMANTINE 10 MG TABLET PO SCH (22:21)
[2022-10-19] MEDS: APIXABAN 2.5 MG TABLET PO SCH (22:21)
[2022-10-19] MEDS: SERTRALINE 50 MG TABLET PO SCH (22:21)
[2022-10-19] MEDS: CYPROHEPTADINE 4 MG TABLET PO SCH (22:21)
[2022-10-20 00:13] LABS: Bacteria,Urine Occasional /HPF (Few); Mucus,Urine Occasional /LPF (Occasional); RBC,Urine 1 /HPF (0-4); Squamous Epithelial Cell,Urine Occasional /HPF (0-10)
[2022-10-20 00:14] LABS: Bilirubin,Urine Negative (Negative); Glucose,Urine (UA) 250 mg/dL (Negative); Ketones,Urine Negative (Negative); Nitrite,Urine Negative (Negative); Protein,Urine >=300 mg/dL (Negative); Urine Appearance Clear (Clear); Urine Color Yellow (Yellow); Urine Specific Gravity 1.025 (1.001-1.035)
[2022-10-20 00:15] LABS: Blood, Urine Trace mg/dL (Negative); Urine Urobilinogen 0.2 eU/dL (<2.0)
[2022-10-20 04:30] LABS: Basophils % 0.3 % (0.0-0.8); Eosinophils # 0.1 10*3/uL (0.0-0.87); Eosinophils % 1.5 % (0.00-10.9); Hematocrit 40.2 VOL% (35.7-47.0); Immature Granulocytes % 0.7 %; Immature Granulocytes Absolute 0.05 #; Lymphocytes % 26.8 % (21.3-54.2); Mean Corpuscular HGB Conc 32.3 GM/DL (32-36); Mean Corpuscular Volume 93.5 FL (87-102); Mean Platelet Volume 12.4 FL (9.6-12.0); Monocytes # 0.7 10*3/uL (0.11-0.8); Monocytes % 9.4 % (1.7-12.7); Neutrophils % 61.3 % (38.7-73.9); Platelet Count 114 T/CUMM (130-400); Red Cell Distribution Width 14.5 % (9.3-17.3); White Blood Count 7.4 T/CUMM (4-12)
[2022-10-20 04:51] LABS: Albumin 2.6 G/DL (3.4-5.0); Bilirubin,Total 0.7 MG/DL (0.20-1.00); Calcium 8.4 MG/DL (8.5-10.1); Osmolality,Calculated 290.3 MOS/KG (273-304); Potassium 3.6 MMOL/L (3.5-5.1); Total Protein 6.1 G/DL (6.4-8.2)
[2022-10-20] MEDS: INSULIN LISPRO 100 UNIT/ML SUBCUT SCH ×4 (08:23→21:50)
[2022-10-20] MEDS: SODIUM CHLORIDE 0.9% 1,000 ML IV SCH ×3 (08:29→21:41)
[2022-10-20] MEDS: PANTOPRAZOLE 40 MG TABLET PO SCH (08:39)
[2022-10-20] MEDS: carvediloL 25 MG TABLET PO SCH ×2 (08:39→17:03)
[2022-10-20] MEDS: DILTIAZEM CD 120 MG CAPSULE PO SCH (08:42)
[2022-10-20] MEDS: APIXABAN 2.5 MG TABLET PO SCH ×2 (08:42→21:40)
[2022-10-20] MEDS: POLYETHYLENE GLYCOL POWDER 17 GM PACK PO SCH (08:44)
[2022-10-20] MEDS ORDERED: ASPIRIN CHEW 81 MG TABLET PO SCH (09:00)
[2022-10-20] MEDS ORDERED: ROSUVASTATIN 10 MG TABLET PO SCH (21:00)
[2022-10-20] MEDS: ATORVASTATIN 80 MG TABLET PO SCH (21:39)
[2022-10-20] MEDS: SERTRALINE 50 MG TABLET PO SCH (21:40)
[2022-10-20] MEDS: CYPROHEPTADINE 4 MG TABLET PO SCH (21:40)
[2022-10-20] MEDS: MEMANTINE 10 MG TABLET PO SCH (21:40)
[2022-10-21 05:30] LABS: Basophils % 0.3 % (0.0-0.8); Eosinophils # 0.2 10*3/uL (0.0-0.87); Eosinophils % 2.5 % (0.00-10.9); Hematocrit 36.7 VOL% (35.7-47.0); Hemoglobin 11.3 GM/DL (12.0-16.0); Immature Granulocytes % 0.7 %; Immature Granulocytes Absolute 0.04 #; Lymphocytes # 1.9 10*3/uL (1.4-4.0); Lymphocytes % 30.9 % (21.3-54.2); Mean Corpuscular HGB Conc 30.8 GM/DL (32-36); Mean Corpuscular Volume 96.6 FL (87-102); Mean Platelet Volume 12.2 FL (9.6-12.0); Monocytes # 0.6 10*3/uL (0.11-0.8); Monocytes % 10.2 % (1.7-12.7); Neutrophils % 55.4 % (38.7-73.9); Red Cell Distribution Width 14.6 % (9.3-17.3); White Blood Count 6.1 T/CUMM (4-12)
[2022-10-21 05:31] LABS: Platelet Count 99 T/CUMM (130-400)
[2022-10-21 06:07] LABS: Platelet Estimate Decreased
[2022-10-21 06:10] LABS: Albumin 2.2 G/DL (3.4-5.0); Bilirubin,Total 0.7 MG/DL (0.20-1.00); Calcium 8.3 MG/DL (8.5-10.1); Osmolality,Calculated 290.8 MOS/KG (273-304); Potassium 3.6 MMOL/L (3.5-5.1); Total Protein 5.3 G/DL (6.4-8.2)
[2022-10-21 06:17] LABS: Risk Ratio 3.14; VLDL Cholesterol 15.6 MG/DL
[2022-10-21] MEDS: INSULIN LISPRO 100 UNIT/ML SUBCUT SCH ×4 (08:55→20:37)
[2022-10-21] MEDS: DILTIAZEM CD 120 MG CAPSULE PO SCH (08:59)
[2022-10-21] MEDS: PANTOPRAZOLE 40 MG TABLET PO SCH (08:59)
[2022-10-21] MEDS: carvediloL 25 MG TABLET PO SCH ×2 (08:59→16:38)
[2022-10-21] MEDS: APIXABAN 2.5 MG TABLET PO SCH ×2 (08:59→20:22)
[2022-10-21] MEDS: ASPIRIN EC 325 MG TABLET PO SCH (08:59)
[2022-10-21] MEDS: POLYETHYLENE GLYCOL POWDER 17 GM PACK PO SCH (09:00)
[2022-10-21] MEDS: SODIUM CHLORIDE 0.9% 1,000 ML IV SCH (09:00)
[2022-10-21] MEDS: SERTRALINE 50 MG TABLET PO SCH (20:22)
[2022-10-21] MEDS: ATORVASTATIN 80 MG TABLET PO SCH (20:22)
[2022-10-21] MEDS: MEMANTINE 10 MG TABLET PO SCH (20:22)
[2022-10-21] MEDS: CYPROHEPTADINE 4 MG TABLET PO SCH (20:39)
[2022-10-22 04:38] LABS: Basophils % 0.4 % (0.0-0.8); Eosinophils # 0.1 10*3/uL (0.0-0.87); Eosinophils % 1.8 % (0.00-10.9); Hematocrit 40.6 VOL% (35.7-47.0); Hemoglobin 12.8 GM/DL (12.0-16.0); Immature Granulocytes % 0.4 %; Immature Granulocytes Absolute 0.03 #; Lymphocytes # 1.2 10*3/uL (1.4-4.0); Lymphocytes % 15.9 % (21.3-54.2); Mean Corpuscular HGB Conc 31.5 GM/DL (32-36); Mean Corpuscular Volume 95.5 FL (87-102); Mean Platelet Volume 11.9 FL (9.6-12.0); Monocytes # 0.6 10*3/uL (0.11-0.8); Monocytes % 7.9 % (1.7-12.7); Neutrophils % 73.6 % (38.7-73.9); Platelet Count 104 T/CUMM (130-400); Red Blood Count 4.25 MC/CUMM (3.8-5.5); Red Cell Distribution Width 14.1 % (9.3-17.3); White Blood Count 7.25 T/CUMM (4-12)
[2022-10-22 05:05] LABS: Albumin 2.5 G/DL (3.4-5.0); Bilirubin,Total 0.8 MG/DL (0.20-1.00); Calcium 8.5 MG/DL (8.5-10.1); Osmolality,Calculated 294.7 MOS/KG (273-304); Potassium 3.3 MMOL/L (3.5-5.1); Total Protein 6.1 G/DL (6.4-8.2)
[2022-10-22] MEDS ORDERED: POTASSIUM CHLORIDE 20 MEQ TABLET PO ONE (08:12)
[2022-10-22] MEDS ORDERED: hydrALAZINE 20 MG/1 ML VIAL IV PRN (09:37)
[2022-10-22] MEDS: PANTOPRAZOLE 40 MG TABLET PO SCH (09:39)
[2022-10-22] MEDS: APIXABAN 2.5 MG TABLET PO SCH ×2 (09:39→21:24)
[2022-10-22] MEDS: carvediloL 25 MG TABLET PO SCH ×2 (09:39→16:42)
[2022-10-22] MEDS: ASPIRIN EC 325 MG TABLET PO SCH (09:39)
[2022-10-22] MEDS: DILTIAZEM CD 120 MG CAPSULE PO SCH (09:39)
[2022-10-22] MEDS: POLYETHYLENE GLYCOL POWDER 17 GM PACK PO SCH (09:40)
[2022-10-22] MEDS: INSULIN LISPRO 100 UNIT/ML SUBCUT SCH ×4 (13:36→23:13)
[2022-10-22] MEDS: SERTRALINE 50 MG TABLET PO SCH (21:24)
[2022-10-22] MEDS: ATORVASTATIN 80 MG TABLET PO SCH (21:24)
[2022-10-22] MEDS: MEMANTINE 10 MG TABLET PO SCH (21:24)
[2022-10-22] MEDS: CYPROHEPTADINE 4 MG TABLET PO SCH (21:24)
[2022-10-23 02:54] LABS: Bacteria,Urine Few /HPF (Few); RBC,Urine 4 /HPF (0-4); Squamous Epithelial Cell,Urine Occasional /HPF (0-10)
[2022-10-23 02:57] LABS: Urine Appearance Clear (Clear); Urine Color Yellow (Yellow)
[2022-10-23 02:58] LABS: Bilirubin,Urine Negative (Negative); Blood, Urine Trace mg/dL (Negative); Glucose,Urine (UA) 500 mg/dL (Negative); Ketones,Urine Negative (Negative); Nitrite,Urine Negative (Negative); Protein,Urine 100 mg/dL (Negative); Urine Specific Gravity 1.025 (1.001-1.035); Urine Urobilinogen 0.2 eU/dL (<2.0); Urine pH 5.5 (4.5-8.0)
[2022-10-23 06:42] LABS: Basophils % 0.3 % (0.0-0.8); Hematocrit 39.4 VOL% (35.7-47.0); Hemoglobin 12.6 GM/DL (12.0-16.0); Immature Granulocytes % 0.6 %; Immature Granulocytes Absolute 0.04 #; Lymphocytes # 0.8 10*3/uL (1.4-4.0); Lymphocytes % 12.5 % (21.3-54.2); Mean Platelet Volume 12.6 FL (9.6-12.0); Monocytes # 0.3 10*3/uL (0.11-0.8); Monocytes % 3.9 % (1.7-12.7); Neutrophils % 82.7 % (38.7-73.9); Platelet Count 101 T/CUMM (130-400); Red Blood Count 4.19 MC/CUMM (3.8-5.5); Red Cell Distribution Width 14.1 % (9.3-17.3); White Blood Count 6.64 T/CUMM (4-12)
[2022-10-23 07:07] LABS: Albumin 2.6 G/DL (3.4-5.0); Bilirubin,Total 0.7 MG/DL (0.20-1.00); Osmolality,Calculated 291.1 MOS/KG (273-304); Potassium 3.9 MMOL/L (3.5-5.1); Total Protein 6.4 G/DL (6.4-8.2)
[2022-10-23] MEDS: PANTOPRAZOLE 40 MG TABLET PO SCH (08:36)
[2022-10-23] MEDS: INSULIN LISPRO 100 UNIT/ML SUBCUT SCH ×4 (08:36→21:19)
[2022-10-23] MEDS: ASPIRIN EC 325 MG TABLET PO SCH (08:36)
[2022-10-23] MEDS: DILTIAZEM CD 120 MG CAPSULE PO SCH (08:37)
[2022-10-23] MEDS: POLYETHYLENE GLYCOL POWDER 17 GM PACK PO SCH (08:38)
[2022-10-23] MEDS: APIXABAN 2.5 MG TABLET PO SCH ×2 (08:38→21:19)
[2022-10-23] MEDS: carvediloL 25 MG TABLET PO SCH ×2 (08:38→16:27)
[2022-10-23] MEDS ORDERED: amLODIPine 5 MG TABLET PO SCH (09:37)
[2022-10-23] MEDS ORDERED: hydrALAZINE 20 MG/1 ML VIAL IV PRN (14:39)
[2022-10-23] MEDS: SERTRALINE 50 MG TABLET PO SCH (21:19)
[2022-10-23] MEDS: MEMANTINE 10 MG TABLET PO SCH (21:19)
[2022-10-23] MEDS: ATORVASTATIN 80 MG TABLET PO SCH (21:19)
[2022-10-23] MEDS: CYPROHEPTADINE 4 MG TABLET PO SCH (21:19)
[2022-10-24 05:10] LABS: Basophils % 0.3 % (0.0-0.8); Eosinophils # 0.1 10*3/uL (0.0-0.87); Eosinophils % 1.8 % (0.00-10.9); Hematocrit 38.1 VOL% (35.7-47.0); Hemoglobin 11.9 GM/DL (12.0-16.0); Immature Granulocytes % 0.5 %; Immature Granulocytes Absolute 0.03 #; Lymphocytes # 1.8 10*3/uL (1.4-4.0); Lymphocytes % 30.7 % (21.3-54.2); Mean Corpuscular HGB Conc 31.2 GM/DL (32-36); Mean Platelet Volume 12.2 FL (9.6-12.0); Monocytes # 0.5 10*3/uL (0.11-0.8); Neutrophils % 58.7 % (38.7-73.9); Platelet Count 87 T/CUMM (130-400); Red Blood Count 3.85 MC/CUMM (3.8-5.5); Red Cell Distribution Width 14.4 % (9.3-17.3)
[2022-10-24 05:26] LABS: Albumin 2.2 G/DL (3.4-5.0); Bilirubin,Total 0.5 MG/DL (0.20-1.00); Calcium 8.7 MG/DL (8.5-10.1); Osmolality,Calculated 284.5 MOS/KG (273-304); Potassium 3.7 MMOL/L (3.5-5.1); Total Protein 5.6 G/DL (6.4-8.2)
[2022-10-24 08:36] VITALS: BP 141/76
[2022-10-24] MEDS: INSULIN LISPRO 100 UNIT/ML SUBCUT SCH (09:00)
[2022-10-24] MEDS ORDERED: amLODIPine 10 MG TABLET PO SCH (09:00)
[2022-10-24] MEDS: DILTIAZEM CD 120 MG CAPSULE PO SCH (09:01)
[2022-10-24] MEDS: POLYETHYLENE GLYCOL POWDER 17 GM PACK PO SCH (09:01)
[2022-10-24] MEDS: ASPIRIN EC 325 MG TABLET PO SCH (09:01)
[2022-10-24] MEDS: PANTOPRAZOLE 40 MG TABLET PO SCH (09:01)
[2022-10-24] MEDS: APIXABAN 2.5 MG TABLET PO SCH (09:01)
[2022-10-24] MEDS: carvediloL 25 MG TABLET PO SCH (09:02)
== END 2022-10-24 12:25 | DRG 65 ==
LOC: EDUNIT# → EDBD → N.EDINP 13:44 → N.ED 13:44 → N.2W 19:06 → SUATTDRO 10-20 13:33
PROVIDERS: ADMIT Family Medicine; ATTEND Internal Medicine